=== PATIENT | female | born 1935 | race Caucasian/White ===

== ENCOUNTER → 2016-07-26 | Outpatient (CLI) | payer OTHER, MEDICARE ==
[~2016-07-26] MED LIST: ADVIL PM PO; CALCTAB7 PO; METO25TA3 PO; SIMV20TA2 PO; metoprolol
[2016-07-26 14:00] LABS: BASO % 0.4 %; BASO ABS # 0.03 K/uL (0-0.2); COMPLETE YES; EOS % 2.5 %; HEMATOCRIT 41.2 % (37-47); IG% 0.1 %; LYMPH % 39.7 %; LYMPH ABS # 3.05 K/uL (1.2-3.4); MEAN CELL VOLUME 91.8 fL (80-100); MEAN CORPUSCULAR HGB CONC 33.7 g/dl (32-36); MEAN PLATELET VOLUME 9.4 fL (7.4-10.4); MONO % 8.7 %; NEUT % 48.6 %; PLATELET COUNT 194 K/uL (130-400); RED BLOOD COUNT 4.49 M/uL (4.2-5.4); WHITE BLOOD COUNT 7.68 K/uL (4.8-10.8)
[2016-07-26 14:09] LABS: ALT/SGPT 29 U/L (12-78); AST/SGOT 20 U/L (15-37); BLOOD UREA NITROGEN 20 mg/dl (7-18); BUN/CREATININE RATIO 16.3 (10-20); CALCIUM 9.4 mg/dl (8.5-10.1); CARBON DIOXIDE 28 mmol/L (21-32); CHLORIDE 106 mmol/L (98-107); CHOLESTEROL 179 mg/dl (0-200); GLUCOSE 88 mg/dl (70-99); SODIUM 141 mmol/L (136-145); TRIGLYCERIDES 266 mg/dl (0-150); VERY LOW DENSITY LIPOPROT CALC 53 mg/dl
[2016-07-26 14:12] LABS: ALKALINE PHOSPHATASE 53 U/L (45-117); CHOLESTEROL/HDL RATIO 3.7; HDL CHOLESTEROL 49 mg/dl
== END | disposition home or self-care (01) ==
LOC: C.LABSPEC 12:46
PROVIDERS: ATTEND Internal Medicine
DX: I10 Essential (primary) hypertension (principal); E78.5 Hyperlipidemia, unspecified; M19.90 Unspecified osteoarthritis, unspecified site; E55.9 Vitamin D deficiency, unspecified

== ENCOUNTER → 2016-08-20 | Outpatient (CLI) | payer OTHER, MEDICARE | END | disposition home or self-care (01) | LOC: C.LABSPEC 14:24 | PROVIDERS: ATTEND Internal Medicine | DX: Z01.419 Encounter for gynecological examination (general) (routine) without abnormal findings (principal) ==

== ENCOUNTER → 2016-10-21 | Outpatient (CLI) | payer OTHER, MEDICARE ==
--- NOTE | 2016-10-21 16:00 | MAMMOGRAPHY REPORT ---
BILATERAL DIGITAL SCREENING MAMMOGRAM WITH CAD: 10/21/2016 CLINICAL HISTORY: Routine screening. Patient has no complaints. TECHNIQUE: Bilateral CC, MLO and right XCCL views were obtained. Current study was also evaluated wi th a Computer Aided Detection (CAD) system. COMPARISON: Comparison is made to exams dated: 10/10/2015 mammogram, 10/06/2014 mammogram, 10/05/2013 m ammogram, 10/02/2012 mammogram, 10/02/2011 mammogram, and 09/27/2010 mammogram - [facility] er. BREAST COMPOSITION: There are scattered areas of fibroglandular density in both breasts. FINDINGS: There is stable asymmetry in the inferior right breast. A few benign-appearing calcificati ons bilaterally. No suspicious mass, architectural distortion or cluster of suspicious microcalcifica tions is seen. IMPRESSION: ACR BI-RADS CATEGORY 1: NEGATIVE There is no mammographic evidence of malignancy. A 1 year screening mammogram is recommended. The pa tient will receive written notification of the results. Approximately 10% of breast cancers are not detected with mammography. A negative mammographic report should not delay biopsy if a clinically suggestive mass is present. Ofelia Pickard M.D. ay/:10/21/2016 14:46:27 Ecommerce Merchandising Manager: Cris ESCAMILLA(Marisol)(Ladi)(BD), [facility] letter sent: Normal 1/2 BI-RADS Code: ACR BI-RADS Category 1: Negative
== END | disposition home or self-care (01) ==
LOC: C.MAMM 14:18
PROVIDERS: ATTEND Internal Medicine
DX: Z12.31 Encounter for screening mammogram for malignant neoplasm of breast (principal)

== ENCOUNTER 2016-11-05 13:45 | Emergency (ER) | payer OTHER, MEDICARE ==
[~2016-11-05] VITALS: Ht 162.6 cm; Wt 67.0 kg
[~2016-11-05 13:45] MED LIST changes: -METO25TA3 PO
[2016-11-05 13:47] VITALS: Ht 162.6 cm; Wt 67.0 kg
[2016-11-05] MEDS ORDERED: SODIUM CHLORIDE 0.9% 1000ML 1,000 ML IV STA (13:59)
[2016-11-05] MEDS ORDERED: KETOROLAC TROMETHAMINE 30 MG/ML VIAL IV STA (13:59)
[2016-11-05] MEDS ORDERED: METO25TA3 PO (14:10)
[2016-11-05 15:05] LABS: BASO % 0.4 %; BASO ABS # 0.03 K/uL (0-0.2); COMPLETE YES; EOS % 2.2 %; HEMATOCRIT 41.6 % (37-47); IG% 0.1 %; LYMPH % 49.4 %; LYMPH ABS # 3.54 K/uL (1.2-3.4); MEAN CELL VOLUME 89.3 fL (80-100); MEAN CORPUSCULAR HEMOGLOBIN 29.8 pg (25-34); MEAN CORPUSCULAR HGB CONC 33.4 g/dl (32-36); MEAN PLATELET VOLUME 8.8 fL (7.4-10.4); MONO % 7.8 %; NEUT % 40.1 %; PLATELET COUNT 194 K/uL (130-400); RED BLOOD COUNT 4.66 M/uL (4.2-5.4); WHITE BLOOD COUNT 7.16 K/uL (4.8-10.8)
--- NOTE | 2016-11-05 15:10 | DIAGNOSTIC IMAGING REPORT ---
SINGLE VIEW CHEST CLINICAL HISTORY: Atypical chest pain. FINDINGS: A PA chest radiograph is compared to study dated 06/03/2012. The heart is mildly enlarged and there is atherosclerotic calcification of the thoracic aorta. The pulmonary vasculature is noncongested. Chronic interstitial thickening is similar to previous. There is mild left basilar atelectasis. The lungs and pleural spaces are otherwise clear. No pneumothorax is seen. The skeletal structures are osteopenic. The bony thorax is grossly intact. IMPRESSION: Mild cardiomegaly with no acute cardiopulmonary abnormality. Electronically signed by: Tanner Corral M.D. 11/05/2016 3:08 PM Dictated Date/Time: 11/05/2016 3:07 PM
--- NOTE | 2016-11-05 15:11 | DIAGNOSTIC IMAGING REPORT ---
THORACIC SPINE 3 VIEWS CLINICAL HISTORY: Thoracic back pain. FINDINGS: AP, lateral, and swimmer's views of the thoracic spine are correlated with lateral chest radiograph dated 06/03/2012. The skeletal structures are osteopenic. There is no radiographic evidence of fracture or malalignment involving the thoracic spine. Vertebral body height and alignment are maintained. Tiny anterior osteophytes are seen throughout. The disc spaces appear preserved. The transverse processes and pedicles are grossly intact as seen on the frontal view. The imaged lung parenchyma appears clear. There is atherosclerotic calcification of the thoracic aorta. IMPRESSION: Osteopenia and mild degenerative change as above. No acute bony abnormality is seen in the thoracic spine. Electronically signed by: Tanner Corral M.D. 11/05/2016 3:10 PM Dictated Date/Time: 11/05/2016 3:09 PM
[2016-11-05 15:24] LABS: ALT/SGPT 24 U/L (12-78); BLOOD UREA NITROGEN 19 mg/dl (7-18); BUN/CREATININE RATIO 14.7 (10-20); CALCIUM 9.5 mg/dl (8.5-10.1); CARBON DIOXIDE 28 mmol/L (21-32); CHLORIDE 108 mmol/L (98-107); GLUCOSE 97 mg/dl (70-99); POTASSIUM 3.9 mmol/L (3.5-5.1); SODIUM 143 mmol/L (136-145)
[2016-11-05 15:29] LABS: ALKALINE PHOSPHATASE 53 U/L (45-117); AST/SGOT 21 U/L (15-37); CKMB/CK RATIO 1.6 (0-3.0)
[2016-11-05] MEDS ORDERED: OPTIRAY 320 IV PRN (16:00)
--- NOTE | 2016-11-05 16:14 | DIAGNOSTIC IMAGING REPORT ---
CT ANGIOGRAPHY OF THE CHEST, PULMONARY EMBOLUS PROTOCOL CLINICAL HISTORY: Chest pain. Back pain. COMPARISON STUDY: Chest radiograph June 03, 2012 and November 05, 2016. TECHNIQUE: Following IV administration of 94. mL of Optiray-320, helical axial images of the chest were obtained utilizing the pulmonary embolus protocol. Maximal intensity projections and sagittal and coronal reformats were viewed on an independent 3D workstation. IV contrast was administered without complication. CT DOSE: 210.02 mGy.cm FINDINGS: No pulmonary emboli are identified. There is moderate atherosclerotic plaque of the thoracic liver. There is no thoracic aortic dissection. Size of the heart is normal. There is no pericardial effusion. There is moderate coronary artery calcification. No pneumothorax or pleural effusion is present. There is no consolidation to suggest pneumonia. There are multiple calcified lung nodules. There is a 4 mm noncalcified nodule within the left upper lobe shown on image 208 of 296. Bony thorax and upper abdomen are unremarkable with the exception of a left hepatic lobe cyst. IMPRESSION: 1. No pulmonary emboli identified. 2. No thoracic aortic dissection. Moderate atherosclerotic plaque of the descending thoracic aorta. 3. No acute intrathoracic findings. 4. 4 mm noncalcified left upper lobe nodule. This is likely benign but a follow up chest CT in 6 months is recommended to ensure resolution or stability. Electronically signed by: Erick Hale M.D. 11/05/2016 4:13 PM Dictated Date/Time: 11/05/2016 4:03 PM
[2016-11-05 17:34] VITALS: BP 167/73; PULSE 68; TEMP 36.5; O2SAT 98
--- NOTE | 2016-11-05 18:08 | EMERGENCY ROOM VISIT NOTE ---
History Report prepared by Felipe: Michael Braden Under the Supervision of: Dr. Wilfred Herrera D.O. First contact with patient: 13:49 Chief Complaint: CHEST PAIN Stated Complaint: PAIN IN CHEST AND BACK Nursing Triage Summary: pt to the ED with c/o back pain radiating to the chest starting 45 min ago History of Present Illness The patient is a 81 year old female who presents to the Emergency Room with complaints of persistent back pain radiating to her chest beginning 45 minutes ago. She states that she was watching TV when her symptoms began. Pain is located in her mid thoracic spine over center of her back and goes and muscles. The patient states that she has a history of similar symptoms, but states that it has never lasted for more than 5 minutes so she has not followed up about it. She estimates that she would typically have these brief symptoms every 10 days or so for about 6 months. Standing up and walking improves her pain. Aspirin also improves her pain. Nothing worsens her pain. Pt denies headache, change in vision, fevers, arm pain, neck pain, jaw pain, diaphoresis, shortness of breath, nausea, vomiting, diarrhea, pain with urination, and melena. She denies any known pain with eating, drinking, or straining. She took aspirin for her pain today. She denies any exertional symptoms and notes that she is very active on a day-to-day basis. No previous history of any heart disease. She denies any weakness or numbness in her legs. No numbness in her groin. Able to urinate and move bowels without difficulty. Source of History: patient Onset: 45 minutes ago Position: back (upper back) Timing: other (persistent) Modifying Factors (Worsening): other (nothing) Modifying Factors (Relieving): other (standing up) Associated Symptoms: + chest pain, No neck pain, No SOB, No nausea, No vomiting Note: The patient denies any arm pain. Review of Systems See HPI for pertinent positives & negatives. A total of 10 systems reviewed and were otherwise negative. Past Medical & Surgical Medical Problems: (1) HTN (hypertension) Family History No pertinent family history stated. Social History Smoking Status: Never Smoker Occupation Status: retired Current/Historical Medications Scheduled Calcium Carbonate-Vitamin D W/ (Caltrate 600 Plus), 1 TAB PO DAILY Metoprolol Succ (Toprol Xl) (Toprol-Xl), 25 MG PO DAILY Simvastatin (Zocor), 20 MG PO QPM Allergies Coded Allergies: No Known Allergies (Unverified , 11/05/16) Physical Exam Vital Signs Date Time Temp Pulse Resp B/P (MAP) Pulse Ox O2 Delivery O2 Flow Rate FiO2 11/05/16 17:34 36.5 68 16 167/73 98 11/05/16 16:04 69 16 165/67 97 Room Air 11/05/16 15:20 72 18 153/62 98 Room Air 11/05/16 14:35 74 24 158/71 96 11/05/16 13:57 74 11/05/16 13:47 36.5 79 16 170/80 97 Room Air Physical Exam GENERAL: Sitting up in bed, alert, well appearing, well nourished, no distress, non-toxic EYE EXAM: normal conjunctiva OROPHARYNX: no exudate, no erythema, lips, buccal mucosa, and tongue normal and mucous membranes are moist NECK: supple, no nuchal rigidity, no adenopathy, non-tender LUNGS: Clear to auscultation. Normal chest wall mechanics HEART: no murmurs, S1 normal and S2 normal ABDOMEN: abdomen soft, non-tender, normo-active bowel sounds, no masses, no rebound or guarding. BACK: Back is symmetrical on inspection and there is no deformity, no CVA tenderness. Mild tenderness in the mid-thoracic spine and paraspinal area. SKIN: no rashes and no bruising UPPER EXTREMITIES: upper extremities are grossly normal. Radial pulses equal bilaterally. LOWER EXTREMITIES: No pitting edema. Flexion/extension of hip, knee, ankle, and EHL are 5/5 bilaterally. NEURO EXAM: Normal sensorium, cranial nerves II-XII grossly intact, normal speech, no weakness of arms, no weakness of legs. Medical Decision & Procedures ER Provider Diagnostic Interpretation: Radiology results as stated below per my review and the radiologist's interpretation: THORACIC SPINE 3 VIEWS FINDINGS: AP, lateral, and swimmer's views of the thoracic spine are correlated with lateral chest radiograph dated 06/03/2012. The skeletal structures are osteopenic. There is no radiographic evidence of fracture or malalignment involving the thoracic spine. Vertebral body height and alignment are maintained. Tiny anterior osteophytes are seen throughout. The disc spaces appear preserved. The transverse processes and pedicles are grossly intact as seen on the frontal view. The imaged lung parenchyma appears clear. There is atherosclerotic calcification of the thoracic aorta. IMPRESSION: Osteopenia and mild degenerative change as above. No acute bony abnormality is seen in the thoracic spine. Electronically signed by: Tanner Corral M.D. SINGLE VIEW CHEST FINDINGS: A PA chest radiograph is compared to study dated 06/03/2012. The heart is mildly enlarged and there is atherosclerotic calcification of the thoracic aorta. The pulmonary vasculature is noncongested. Chronic interstitial thickening is similar to previous. There is mild left basilar atelectasis. The lungs and pleural spaces are otherwise clear. No pneumothorax is seen. The skeletal structures are osteopenic. The bony thorax is grossly intact. IMPRESSION: Mild cardiomegaly with no acute cardiopulmonary abnormality. Electronically signed by: Tanner Corral M.D. Laboratory Results 11/05/16 13:55 Red Blood Count 4.66, Mean Corpuscular Volume 89.3, Mean Corpuscular Hemoglobin 29.8, Mean Corpuscular Hemoglobin Concent 33.4, Mean Platelet Volume 8.8, Neutrophils (%) (Auto) 40.1, Lymphocytes (%) (Auto) 49.4, Monocytes (%) (Auto) 7.8, Eosinophils (%) (Auto) 2.2, Basophils (%) (Auto) 0.4, Neutrophils # (Auto) 2.86, Lymphocytes # (Auto) 3.54, Monocytes # (Auto) 0.56, Eosinophils # (Auto) 0.16, Basophils # (Auto) 0.03 11/05/16 13:55 Test 11/05/16 13:55 11/05/16 16:23 White Blood Count 7.16 K/uL (4.8-10.8) Red Blood Count 4.66 M/uL (4.2-5.4) Hemoglobin 13.9 g/dL (12.0-16.0) Hematocrit 41.6 % (37-47) Mean Corpuscular Volume 89.3 fL (80-100) Mean Corpuscular Hemoglobin 29.8 pg (25-34) Mean Corpuscular Hemoglobin Concent 33.4 g/dl (32-36) Platelet Count 194 K/uL (130-400) Mean Platelet Volume 8.8 fL (7.4-10.4) Neutrophils (%) (Auto) 40.1 % Lymphocytes (%) (Auto) 49.4 % Monocytes (%) (Auto) 7.8 % Eosinophils (%) (Auto) 2.2 % Basophils (%) (Auto) 0.4 % Neutrophils # (Auto) 2.86 K/uL (1.4-6.5) Lymphocytes # (Auto) 3.54 K/uL (1.2-3.4) Monocytes # (Auto) 0.56 K/uL (0.11-0.59) Eosinophils # (Auto) 0.16 K/uL (0-0.5) Basophils # (Auto) 0.03 K/uL (0-0.2) RDW Standard Deviation 42.3 fL (36.4-46.3) RDW Coefficient of Variation 13.1 % (11.5-14.5) Immature Granulocyte % (Auto) 0.1 % Immature Granulocyte # (Auto) 0.01 K/uL (0.00-0.02) D-Dimer 840 ug/L FEU (0-500) Anion Gap 7.0 mmol/L (3-11) Est Creatinine Clear Calc Drug Dose 33.0 ml/min Estimated GFR () 45.2 Estimated GFR (Non- 39.0 BUN/Creatinine Ratio 14.7 (10-20) Calcium Level 9.5 mg/dl (8.5-10.1) Total Bilirubin 0.8 mg/dl (0.2-1) Direct Bilirubin 0.1 mg/dl (0-0.2) Aspartate Amino Transf (AST/SGOT) 21 U/L (15-37) Alanine Aminotransferase (ALT/SGPT) 24 U/L (12-78) Alkaline Phosphatase 53 U/L (45-117) Total Creatine Kinase 86 U/L (26-192) Creatine Kinase MB 1.4 ng/ml (0.5-3.6) Creatine Kinase MB Ratio 1.6 (0-3.0) Total Protein 7.5 gm/dl (6.4-8.2) Albumin 3.9 gm/dl (3.4-5.0) Lipase 289 U/L (73-393) Troponin I < 0.015 ng/ml (0-0.045) Laboratory results per my review. Medications Administered Medications (Trade) Dose Ordered Sig/Larry Route Start Time Stop Time Status Last Admin Dose Admin Ketorolac Tromethamine (Toradol Inj) 30 mg NOW STAT IV 11/05/16 13:59 11/05/16 14:01 DC 11/05/16 14:30 30 MG Sodium Chloride 1,000 ml @ 999 mls/hr Q1H1M STAT IV 11/05/16 13:59 11/05/16 14:59 DC 11/05/16 13:59 999 MLS/HR ECG Indication: chest pain, back/shoulder pain Rate (beats per minute): 74 Rhythm: sinus rhythm Findings: no ectopy, other (Normal axis. Normal intervals. ) ED Course ED COURSE: Vital signs were reviewed and showed hypertension The patients medical record was reviewed The above diagnostic studies were performed and reviewed. ED treatments and interventions as stated above. 1352: The patient was evaluated in room A12B. A complete history and physical examination was performed. 1359: Ordered Sodium Chloride 1000 ml @ 999 mls/hr IV, Toradol Inj 30 mg IV. 1513: I reassessed the patient. She is feeling better. She states that her pain feels like a "kink" in her back. 1620: I updated the patient on her test results. We will repeat her Troponin now. 1715: Upon reevaluation, the patient is resting comfortably. I discussed my findings with the patient and she understands and agrees with the treatment plan. Based on the patients age, coexisting illnesses, exam and lab findings the decision to treat as an outpatient was made. The patient remained stable while under my care. The patient appeared well at the time of discharge. Medical Decision Differential diagnoses includes but is not limited to lumbar radiculopathy, muscle strain, facture, cauda equina, mass, and disc herniation. Patient is a 81-year-old female with a past medical history of hypertension that presents the ER for sharp stabbing back pain located along her spine which radiates up towards her chest. She denies any shortness of breath, arm pain, jaw pain, diaphoresis. She notes symptoms are improved with standing up and walking. She has had this pain for the past 6 months and is normally present for about 5-10 minutes while sitting. On exam she is minimal tenderness in the midthoracic spine. Troponins were negative 2. Chest x-ray was unremarkable. D-dimer was elevated and CT PE was performed which shows no dissection or PE. No pneumothorax. Patient was given IV Toradol with resolution of her symptoms. She is monitored closely along the ER. EKG was nonischemic. CBC along with BMP, LFTs and bilirubin was unremarkable. Lipase is normal. She was updated regards to findings. She was discharged follow-up with her PCP with likely muscle skeletal back pain. Discussed with Pt concerning signs and symptoms to watch out for. Pt was instructed to follow up with their PCP and discussed with the patient their option to return to the ED at anytime for persistent or worsening symptoms. The appropriate anticipatory guidance and out-patient management, including indications for return to the emergency department, were explained at length to the patient and understood. Impression Primary Impression: Midline thoracic back pain Additional Impression: Pulmonary nodule Scribe Attestation The scribe's documentation has been prepared under my direction and personally reviewed by me in its entirety. I confirm that the note above accurately reflects all work, treatment, procedures, and medical decision making performed by me. Departure Information Dispostion Home / Self-Care Referrals Krishna Puente M.D. (PCP) Forms HOME CARE DOCUMENTATION FORM, IMPORTANT VISIT INFORMATION Patient Instructions Back Pain - [facility], Replaced By [facility] Additional Instructions Please follow up with your primary care doctor with in the next 24 hours. Any worsening of your symptoms, please return to the ED immediately. This includes recurrence of her back pain, weakness or numbness in your arms or legs, chest pain, shortness of breath, arm pain, jaw pain, or any other concerning signs or symptoms from your standpoint. Please take Motrin or Tylenol as needed for pain. You were found to have a 4 mm pulmonary lung nodule in her left chest. This needs to be re-evaluated by a CAT scan in 6 months by your primary care doctor. Problem Qualifiers Primary Impression: Midline thoracic back pain Chronicity: acute Qualified Codes: M54.6 - Pain in thoracic spine
== END 2016-11-05 17:25 | disposition home or self-care (01) ==
LOC: C.EDB 13:46 → C.EDA 17:25
DX: M54.6 Pain in thoracic spine (principal); R91.1 Solitary pulmonary nodule; I10 Essential (primary) hypertension

== ENCOUNTER → 2017-01-28 | Outpatient (CLI) | payer OTHER, MEDICARE ==
[~2017-01-28] MED LIST changes: -ADVIL PM PO; +METO25TA3 PO; -metoprolol
[2017-01-28 13:40] LABS: BLOOD UREA NITROGEN 17 mg/dl (7-18); BUN/CREATININE RATIO 14.4 (10-20); CALCIUM 9.5 mg/dl (8.5-10.1); CARBON DIOXIDE 24 mmol/L (21-32); CHLORIDE 109 mmol/L (98-107); GLUCOSE 95 mg/dl (70-99); POTASSIUM 4.4 mmol/L (3.5-5.1); SODIUM 142 mmol/L (136-145)
[2017-01-28 13:52] LABS: CHOLESTEROL 153 mg/dl (0-200); HDL CHOLESTEROL 51 mg/dl; TRIGLYCERIDES 180 mg/dl (0-150); VERY LOW DENSITY LIPOPROT CALC 36 mg/dl
== END | disposition home or self-care (01) ==
LOC: C.LABSPEC 12:29
PROVIDERS: ATTEND Internal Medicine
DX: I10 Essential (primary) hypertension (principal); E78.5 Hyperlipidemia, unspecified

== ENCOUNTER → 2017-05-28 | Outpatient (CLI) | payer OTHER, MEDICARE ==
[2017-05-28 13:39] LABS: BLOOD UREA NITROGEN 19 mg/dl (7-18); CALCIUM 9.4 mg/dl (8.5-10.1); CARBON DIOXIDE 29 mmol/L (21-32); CREATININE 1.16 mg/dl (0.60-1.20); GLUCOSE 99 mg/dl (70-99); POTASSIUM 3.9 mmol/L (3.5-5.1); SODIUM 140 mmol/L (136-145)
== END | disposition home or self-care (01) ==
LOC: C.LABSPEC 12:25
PROVIDERS: ATTEND Internal Medicine
DX: Z01.818 Encounter for other preprocedural examination (principal); Z01.812 Encounter for preprocedural laboratory examination

== ENCOUNTER → 2017-05-30 | Outpatient (CLI) | payer OTHER, MEDICARE ==
[~2017-05-30] MED LIST changes: +OPTIRAY 320 IV PRN
--- NOTE | 2017-05-30 12:26 | DIAGNOSTIC IMAGING REPORT ---
CT SCAN OF THE CHEST WITH IV CONTRAST CLINICAL HISTORY: Follow-up pulmonary nodule. COMPARISON STUDY: Chest CT dated 11/05/2016. TECHNIQUE: Following the IV administration of 94 cc of Optiray 320, CT scan of the thorax was performed from the thoracic inlet to the upper abdomen. Images are reviewed in the axial, sagittal, and coronal planes. IV contrast was administered without complication. A dose lowering technique was utilized adhering to the principles of ALARA. CT DOSE: 240.05 mGycm FINDINGS: Thyroid: Imaged portions of the thyroid gland are normal in size and attenuation. Subcentimeter low-attenuation nodules are noted. Thoracic aorta: There is mild atherosclerotic calcification of the thoracic aorta, which is normal in caliber and demonstrates standard 3-vessel arch anatomy. No dissection is seen. Pulmonary vasculature: The pulmonary trunk is normal in caliber. There are no filling defects identified in the central pulmonary vessels to indicate pulmonary embolus. Note that this examination was not protocoled for evaluation of the pulmonary arteries. Heart: The heart is top normal in size and without pericardial effusion. There are coronary artery calcifications. 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 No airspace consolidation or pleural effusion is identified. The trachea and central airways are clear. A tiny calcified granuloma is seen in the right upper lobe. A 3 mm left upper lobe nodule is again seen on image #85. No new pulmonary nodule is identified. Mediastinum: There is no mediastinal lymphadenopathy. Cierra: Clear. Axillae: There is no axillary lymphadenopathy. Upper abdomen: Partially visualized upper abdominal viscera is within normal limits. Skeletal structures: The skeletal structures are osteopenic. No lytic or blastic bony lesions are seen. IMPRESSION: 1. There is no airspace consolidation or pleural effusion. 2. A pathologically indeterminant but low suspicion 3 mm left upper lobe pulmonary nodule is unchanged to slightly decreased in size from 11/05/2016. This can be followed if clinically warranted. 3. No new pulmonary nodule is identified. Please refer to below summary of Fleischner criteria recommendations for follow-up of incidental CT nodules (Margarita Harris, Guidelines for management of small pulmonary nodules detected on CT scans: A statement from the Fleischner Society, Radiology 237: [phone].) SOLID NODULES Solitary nodule size: <6 mm * low risk patients: no follow-up needed * high risk patients: optional CT at 12 months Solitary nodule size: 6-8 mm * low risk patients: follow-up at 6-12 months, then consider further follow-up at 18-24 months * high risk patients: initial follow-up CT at 6-12 months and then at 18-24 months if no change Solitary nodule size: >8 mm * either low or high risk patients - consider follow-up CT at 3 months, and/or CT-PET, and/or biopsy Multiple nodules size: <6 mm * low risk patients: no routine follow-up * high risk patients: optional CT at 12 months Multiple nodules size: 6-8 mm * low risk patients: follow-up at 3-6 months, then consider further follow-up at 18-24 months * high risk patients: follow-up at 3-6 months, then at 18-24 months if no change Multiple nodules size: >8 mm * low risk patients: follow-up at 3-6 months, then consider further follow-up at 18-24 months * high risk patients: follow-up at 3-6 months, then at 18-24 months if no change Note: newly detected indeterminate nodule in persons 35 years of age or older. * low risk patients: minimal or absent history of smoking and/or other known risk factors * high risk patients: history of smoking or of other known risk factors (e.g. first degree relative with lung cancer, or exposure to asbestos, radon, uranium) * if a nodule up to 8 mm is partly solid or is ground glass further follow-up is required after 24 months to exclude possible slow growing adenocarcinoma (TAYLOR) SUBSOLID NODULES Solitary pure ground-glass nodule * nodule size <6 mm - no CT follow-up required * nodule size >=6 mm - follow-up CT at 6-12 months, then every 2 years until 5 years Solitary part-solid nodule * nodule size <6 mm - no CT follow-up required * nodule size >=6 mm - follow-up CT at 3-6 months. If unchanged, and solid component remains <6 mm, then annual follow-up for 5 years Multiple subsolid nodules * nodule size <6 mm - follow-up CT at 3-6 months, consider further follow-up at 2 and 4 years if stable * nodule size >=6 mm - follow-up CT at 3-6 months, subsequent management based on the most suspicious nodule(s) Electronically signed by: Tanner Corral M.D. 05/30/2017 12:24 PM Dictated Date/Time: 05/30/2017 12:16 PM
== END | disposition home or self-care (01) ==
LOC: C.CTS 11:41
PROVIDERS: ATTEND Internal Medicine
DX: R91.1 Solitary pulmonary nodule (principal)

== ENCOUNTER → 2017-07-31 | Outpatient (CLI) | payer OTHER, MEDICARE ==
[~2017-07-31] MED LIST changes: -OPTIRAY 320 IV PRN
[2017-07-31 13:58] LABS: BASO % 0.5 %; BASO ABS # 0.04 K/uL (0-0.2); EOS % 3.1 %; EOS ABS # 0.23 K/uL (0-0.5); HEMATOCRIT 38.4 % (37-47); HEMOGLOBIN 13.3 g/dL (12.0-16.0); IG# 0.01 K/uL (0.00-0.02); LYMPH % 44.7 %; MEAN CELL VOLUME 90.4 fL (80-100); MEAN CORPUSCULAR HEMOGLOBIN 31.3 pg (25-34); MEAN CORPUSCULAR HGB CONC 34.6 g/dl (32-36); MONO % 10.7 %; MONO ABS # 0.79 K/uL (0.11-0.59); NEUT % 40.9 %; NEUT ABS # 3.02 K/uL (1.4-6.5); PLATELET COUNT 174 K/uL (130-400); RED CELL DISTRIBUTION WIDTH CV 13.6 % (11.5-14.5); WHITE BLOOD COUNT 7.39 K/uL (4.8-10.8)
[2017-07-31 14:43] LABS: ALBUMIN 3.6 gm/dl (3.4-5.0); ALT/SGPT 25 U/L (12-78); AST/SGOT 21 U/L (15-37); BLOOD UREA NITROGEN 19 mg/dl (7-18); CALCIUM 8.9 mg/dl (8.5-10.1); CARBON DIOXIDE 26 mmol/L (21-32); CHOLESTEROL 155 mg/dl (0-200); CREATININE 1.12 mg/dl (0.60-1.20); GLUCOSE 84 mg/dl (70-99); POTASSIUM 4.2 mmol/L (3.5-5.1); SODIUM 139 mmol/L (136-145)
[2017-07-31 14:46] LABS: ALKALINE PHOSPHATASE 53 U/L (45-117); LDL CHOLESTEROL (DIRECT) 86 mg/dl; TOTAL PROTEIN 7.2 gm/dl (6.4-8.2)
== END | disposition home or self-care (01) ==
LOC: C.LABSPEC 12:49
PROVIDERS: ATTEND Internal Medicine
DX: M19.90 Unspecified osteoarthritis, unspecified site (principal); I10 Essential (primary) hypertension; E78.5 Hyperlipidemia, unspecified; E55.9 Vitamin D deficiency, unspecified

== ENCOUNTER → 2017-08-02 | Outpatient (CLI) | payer OTHER, MEDICARE ==
[2017-08-13 18:59] LABS: FECAL OCCULT BLOOD #1 NEGATIVE (NEGATIVE); FECAL OCCULT BLOOD #2 NEGATIVE (NEGATIVE); FECAL OCCULT BLOOD #3 NEGATIVE (NEGATIVE)
== END | disposition home or self-care (01) ==
LOC: C.LABSPEC 16:31
PROVIDERS: ATTEND Internal Medicine
DX: Z12.11 Encounter for screening for malignant neoplasm of colon (principal)

== ENCOUNTER → 2017-08-13 | Outpatient (CLI) | payer OTHER, MEDICARE ==
--- NOTE | 2017-08-13 10:56 | DIAGNOSTIC IMAGING REPORT ---
R KNEE 1 OR 2 VIEWS ROUTINE HISTORY: 82 years-old Female RIGHT KNEE PAIN chronic right knee pain COMPARISON: Right knee radiographs 10/18/2015 TECHNIQUE: 3 views of the right knee FINDINGS: Mild tricompartmental joint space narrowing with marginal spurring. Chondrocalcinosis is noted within the medial and lateral compartments. There is no acute fracture or dislocation identified. Suboptimal positioning on the lateral view. Trace joint effusion. IMPRESSION: 1. Trace joint effusion without acute fracture or dislocation. 2. Mild tricompartment degenerative changes with chondrocalcinosis. The above report was generated using voice recognition software. It may contain grammatical, syntax or spelling errors. Electronically signed by: Jose Angel Gagnon M.D. 08/13/2017 10:55 AM Dictated Date/Time: 08/13/2017 10:51 AM
== END | disposition home or self-care (01) ==
LOC: C.RAD 10:23
PROVIDERS: ATTEND Internal Medicine
DX: M25.561 Pain in right knee (principal)

== ENCOUNTER 2022-06-05 10:44 | Inpatient (IN) ==
[2022-06-05] MEDS ORDERED: SODIUM CHLORIDE 0.9% 1000ML 1,000 ML IV ONE (11:03)
--- NOTE | 2022-06-05 11:07 | Emergency Department Note ---
Impression & Plan Acute UTI, AMS (altered mental status), CINDY (acute kidney injury) ED Provider Note NAME: MALIK CRUZ AGE: 87 SEX: F : 1935 ARRIVES VIA: Walk-In INFORMANT: Patient ED PROVIDER(S): Wilfred Herrera DO CHIEF COMPLAINT: abdominal pain HPI: Patient is an 87-year-old female who presents to the ER for dysuria, urgency, and frequency which has been going on for the past week. She notes she has not been feeling well. Over the past 2 to 3 days she has been having nausea, vomiting, and diarrhea. She went to [facility] had a urine done and was diagnosed with a UTI and placed on Bactrim. She notes last night she fell out of bed. She did not hit her head. She fell onto her butt. She denies any head or neck pain. No chest pain or shortness of breath. She notes that she fell and she was unable to get up. She has not been feeling better on the Bactrim. She is having trouble keeping things down. PAST MEDICAL HISTORY:See Below PAST SURGICAL HISTORY:See Below FAMILY HISTORY:See Below SOCIAL HISTORY:See Below HOME MEDICATIONS:See Below ALLERGIES:See Below VITALS:See Below PHYSICAL EXAMINATION: GENERAL: Sitting up in bed, alert, well appearing, well nourished, no distress, non-toxic EYE EXAM: normal conjunctiva. OROPHARYNX: no exudate, no erythema, lips, buccal mucosa, and tongue normal and mucous membranes are moist NECK: supple, no nuchal rigidity, no adenopathy, non-tender LUNGS: Clear to auscultation. Normal chest wall mechanics HEART: no murmurs, S1 normal and S2 normal ABDOMEN: abdomen soft, non-tender, normo-active bowel sounds, no masses, no rebound or guarding. BACK: Back is symmetrical on inspection and there is no deformity, no midline tenderness, no CVA tenderness. UPPER EXTREMITIES: upper extremities are grossly normal. LOWER EXTREMITIES: No pitting edema. NEURO EXAM: Normal sensorium, cranial nerves II-XII grossly intact, normal speech, no gross weakness of arms, no gross weakness of legs. MEDICAL DECISION MAKING: Patient is an 87-year-old female who presents to the ER for the above-stated complaint. IV was established blood was obtained. She was seen in outpatient and placed on Bactrim. Labs show a leukocytosis of 13,000. No significant anemia. BMP with creatinine of 1.9 up from baseline of 1.2. Lipase is u nremarkable. UA with blood and epithelial cells. Outside records were reviewed and did not show a clear UTI but did cover with Rocephin. Chest x-ray per my read shows no focal infiltrate. CT abdomen pelvis as well as CT of the head was negative with exception of some perinephric stranding bilaterally. Concern for Pylo. Was given IV Rocephin as discussed previously and fluids. Updated at bed side. Discussed with the hospitalist for further evaluation with the altered mental status/confusion and shaking chills at home with a white count and questionable Pylo. Triage Nursing notes reviewed. Limited review of prior medical records performed Vital Signs: reviewed and remarkable for no significant abnormalities Differential diagnosis: Differential diagnoses includes but is not limited to gastritis, peptic ulcer disease, GERD, gallbladder disease, pancreatitis, small bowel obstruction, appendicitis, diverticulitis, hernia, urinary tract infection, torsion, perforation, trauma, infectious. ER treatment provided: See below Diagnostics interpreted by me include EKG and cardiac monitoring as listed below: -Cardiac Monitoring: An order was placed for continuous cardiac monitoring. The monitor shows a rate of 70 with sinus rhythm. -ECG: none -Laboratory studies:Interpreted by me as stated above in MDM and shown below. Imaging studies: Xrays: As interpreted by me: Portable AP upright 1 view of the chest shows 1 no focal infiltrate CTs show: CT abdomen pelvis and head as described above with inflammation around bilateral kidneys but otherwise unremarkable Consultation(s): Discussed with the hospitalist for further evaluation Procedures:none Critical Care: None Past Med/Surg History Medical History Anxiety Chronic venous insufficiency CKD (chronic kidney disease) stage 3, GFR 30-59 ml/min History of DVT (deep vein thrombosis) HTN (hypertension) Lumbar radicular pain Lumbar spondylosis Mixed hyperlipidemia No pertinent past medical history Osteoarthritis of left hip Osteoarthritis of right knee Prediabetes Rotator cuff tendonitis Sacroiliac joint pain Spinal stenosis of lumbar region Surgical History History of hysterectomy Hx of cataract surgery No pertinent past surgical history Family History Sister Breast cancer Denies family history of Ovarian cancer Prostate cancer Lung cancer Colorectal cancer Social History Smoking Status: Never smoker Second Hand Exposure: Yes; Hx Alcohol Use: No Hx Substance Use: No Preferred Language: Martiniquais marital status: / Current Living Situation: Alone current occupational status: retired Feels Safe at Home: Yes caffeine: No Dental Care, Regularly: Yes Seatbelt Use: always Sunscreen Use: Yes Allergies Allergies Allergy/AdvReac Type Severity Reaction Status Date / Time No Known Allergies Allergy Verified 06/05/22 15:10 Home Meds Home Medications Medication Instructions Recorded Confirmed docusate sodium 100 mg capsule 100 mg PO BID 12/11/21 06/05/22 (Colace) multivitamin with minerals 1 tab PO DAILY 06/05/22 06/05/22 sulfamethoxazole 800 1 tab PO BID 06/05/22 06/05/22 mg-trimethoprim 160 mg tablet Previous Rx's Medication Instructions Recorded simvastatin 20 mg tablet (Zocor) 20 mg PO DAILY #90 tabs 12/19/21 metoprolol tartrate 50 mg tablet 50 mg PO DAILY #90 tabs 01/02/22 amlodipine 5 mg tablet 5 mg PO DAILY #90 tabs 03/20/22 Results & Data (ED) Vital Signs Vital Signs - 24 hr 06/05/22 10:44 06/05/22 11:58 Temperature 36.6 C Temperature Source Temporal Artery Scan Pulse Rate 69 63 Pulse Rhythm Regular Respiratory Rate 18 21 Respiratory Effort / Characteristics Non-Labored Spontaneous Respiratory Depth Normal Respiratory Pattern Regular Blood Pressure 117/71 Blood Pressure Mean 86 Pulse Oximetry 96 98 Oxygen Delivery Method Room Air Room Air Sepsis Recent Fever Within 48 Hours Yes Sepsis New/Unexplained Change in Mental Status No Sepsis Action Taken by Nursing No Action Required Laboratory Data 06/05/22 11:25 06/05/22 11:25 Lab Results 06/05/22 06/05/22 06/05/22 Range/Units 11:25 11:25 14:25 WBC 13.00 H (4.8-10.8) K/ul RBC 3.91 L (4.20-5.40) M/uL Hgb 11.7 L (12.0-16.0) g/dl Hct 34.2 L (37.0-47.0) % MCV 87.5 (80.0-100.0) fL MCH 29.9 (25.0-34.0) pg MCHC 34.2 (32.0-36.0) g/dL RDW Std Deviation 40.8 (36.4-46.3) fL RDW Coeff of Franky 12.9 (11.5-14.5) % Plt Count 183 (130-400) K/uL MPV 9.0 L (9.4-12.4) fL Immature Gran % (Auto) 0.4 % Neut % (Auto) 73.3 % Lymph % (Auto) 15.9 % Camden % (Auto) 10.0 % Eos % (Auto) 0.2 % Baso % (Auto) 0.2 % Neut # (Auto) 9.53 H (1.40-6.50) K/uL Lymph # (Auto) 2.07 (1.2-3.4) K/uL Camden # (Auto) 1.30 H (0.11-0.59) K/uL Eos # (Auto) 0.03 (0-0.50) K/uL Baso # (Auto) 0.02 (0-0.2) K/uL Immature Gran # (Auto) 0.05 (0.01-0.20) K/uL Sodium 132 L (136-145) mmol/L Potassium 4.0 (3.5-5.1) mmol/L Chloride 98 (98-107) mmol/L Carbon Dioxide 26 (21-32) mmol/L Anion Gap 8 (3-11) BUN 32 H (6-23) mg/dl Creatinine 1.97 H (0.6-1.2) mg/dl Est Cr Clr Drug Dosing 18.0 ml/min Est GFR ( Amer) 26.2 ml/min Est GFR (Non-Af Amer) 22.6 ml/min BUN/Creatinine Ratio 16.2 (10-20) Glucose 104 H (70-99(Fasting)) mg/dl Calcium 8.9 (8.5-10.1) mg/dl Total Bilirubin 0.8 (0.2-1.0) mg/dl AST 20 (13-39) U/L ALT 13 (7-52) U/L Alkaline Phosphatase 54 (34-104) U/L Total Creatine Kinase 505 H (26-192) U/L Total Protein 7.9 (6.0-8.3) gm/dl Albumin 3.7 (3.4-5.0) gm/dl Globulin 4.2 H (2.5-4.0) gm/dl Albumin/Globulin Ratio 0.9 (0.9-2) Lipase 31 (11-82) U/L Urine Color Urine Appearance (Clear) Urine pH (4.5-7.5) Ur Specific Hamlin (1.000-1.030) Urine Protein (Negative) Urine Glucose (UA) (Negative) Urine Ketones (Negative) Urine Blood (Negative) Urine Nitrite (Negative) Urine Bilirubin (Negative) Urine Urobilinogen (Negative) Ur Leukocyte Esterase (Negative) Urine WBC (Auto) (0-5) /hpf Urine RBC (Auto) (0-4) /hpf U Hyaline Cast (Auto) (0-5) /lpf U Epithel Cells (Auto) (0-5) /lpf Urine Bacteria (Auto) (Negative) SARS-CoV-2 (PCR) NEGATIVE (Negative) Influenza Type A (PCR) Negative (Neg) Influenza Type B (PCR) Negative (Neg) RSV (RT-PCR) Negative (Neg) 06/05/22 Range/Units Unknown WBC (4.8-10.8) K/ul RBC (4.20-5.40) M/uL Hgb (12.0-16.0) g/dl Hct (37.0-47.0) % MCV (80.0-100.0) fL MCH (25.0-34.0) pg MCHC (32.0-36.0) g/dL RDW Std Deviation (36.4-46.3) fL RDW Coeff of Franky (11.5-14.5) % Plt Count (130-400) K/uL MPV (9.4-12.4) fL Immature Gran % (Auto) % Neut % (Auto) % Lymph % (Auto) % Cam[place] % (Auto) % Eos % (Auto) % Baso % (Auto) % Neut # (Auto) (1.40-6.50) K/uL Lymph # (Auto) (1.2-3.4) K/uL [place] # (Auto) (0.11-0.59) K/uL Eos # (Auto) (0-0.50) K/uL Baso # (Auto) (0-0.2) K/uL Immature Gran # (Auto) (0.01-0.20) K/uL Sodium (136-145) mmol/L Potassium (3.5-5.1) mmol/L Chloride (98-107) mmol/L Carbon Dioxide (21-32) mmol/L Anion Gap (3-11) BUN (6-23) mg/dl Creatinine (0.6-1.2) mg/dl Est Cr Clr Drug Dosing ml/min Est GFR ( Amer) ml/min Est GFR (Non-Af Amer) ml/min BUN/Creatinine Ratio (10-20) Glucose (70-99(Fasting)) mg/dl Calcium (8.5-10.1) mg/dl Total Bilirubin (0.2-1.0) mg/dl AST (13-39) U/L ALT (7-52) U/L Alkaline Phosphatase (34-104) U/L Total Creatine Kinase (26-192) U/L Total Protein (6.0-8.3) gm/dl Albumin (3.4-5.0) gm/dl Globulin (2.5-4.0) gm/dl Albumin/Globulin Ratio (0.9-2) Lipase (11-82) U/L Urine Color Yellow Urine Appearance Clear (Clear) Urine pH 7.0 (4.5-7.5) Ur Specific Hamlin 1.004 (1.000-1.030) Urine Protein Negative (Negative) Urine Glucose (UA) Negative (Negative) Urine Ketones Negative (Negative) Urine Blood Trace H (Negative) Urine Nitrite Negative (Negative) Urine Bilirubin Negative (Negative) Urine Urobilinogen Negative (Negative) Ur Leukocyte Esterase Negative (Negative) Urine WBC (Auto) 1-5 (0-5) /hpf Urine RBC (Auto) 0-4 (0-4) /hpf U Hyaline Cast (Auto) 0 (0-5) /lpf U Epithel Cells (Auto) 5-10 H (0-5) /lpf Urine Bacteria (Auto) Negative (Negative) SARS-CoV-2 (PCR) (Negative) Influenza Type A (PCR) (Neg) Influenza Type B (PCR) (Neg) RSV (RT-PCR) (Neg) Administered Medications Discontinued Medications Sodium Chloride (Nss 1000ml) 1,000 mls @ 999 mls/hr IV .Q1H1M ONE Stop: 06/05/22 12:03 Last Infusion: 06/05/22 13:37 Dose: 0 mls/hr Documented By: Admin: 06/05/22 11:35 Dose: 999 mls/hr Documented By: SU Ceftriaxone Sodium (Rocephin) 2,000 mg in 70 mls @ 140 mls/hr IV NOW STA Stop: 06/05/22 14:40 Last Infusion: 06/05/22 15:04 Dose: 0 mls/hr Documented By: Admin: 06/05/22 14:22 Dose: 140 mls/hr Documented By: VICKY Imaging Data Radiologist's Impression: Head CT 06/05/22 11:37 CT OF THE HEAD WITHOUT CONTRAST CLINICAL HISTORY: Headache. COMPARISON STUDY: No previous studies for comparison. CT DOSE: 1021.09 mGy.cm TECHNIQUE: Helical axial images of the head were obtained without IV contrast. Automated exposure control was utilized for the study. A dose lowering technique was utilized adhering to the principles of ALARA. FINDINGS: No acute intracranial hemorrhage, midline shift or mass effect is present. White 1matter hypodensity suggests small vessel disease. Bilateral basal ganglia calcification is noted. The ventricular system is unremarkable. The basal cisterns are patent. No extra-axial collections are present. There are no findings to suggest acute dural sinus thrombosis or acute territorial infarct. No significant calvarial abnormalities are present. Visualized portions of the sinuses and mastoid air cells are clear. IMPRESSION: No acute intracranial findings. ACT 112: Negative or not required by law. Electronically signed by: Erick Hale M.D. 06/05/2022 1:18 PM Abdomen/Pelvis CT 06/05/22 12:[address] WITHOUT CONTRAST HISTORY: Acute generalized abdominal pain with nausea, vomiting and fever abd pain n/v and fever TECHNIQUE: Multiaxial CT images of the abdomen and pelvis were performed without contrast. A dose lowering technique was utilized adhering to the principles of ALARA. COMPARISON STUDY: 06/23/2020 FINDINGS: Cardiomegaly with extensive coronary artery calcifications. Subsegmental bibasilar densities favoring atelectasis. No pneumatosis or pneumoperitoneum. The unenhanced spleen, pancreas and adrenal glands are within normal limits. Mildly contracted gallbladder. The liver is within normal limits. Mild nonspecific bilateral perinephric stranding. 4 mm hypodense focus of the inte rpolar left kidney on image 180 series 5 is too small to characterize however stable from prior suggestive of a probable proteinaceous or hemorrhagic cyst. Exophytic cyst of the inferior pole left kidney. Mild bilateral pelvocaliectasis. Indeterminate 1.67 m hypodense lesion of the superior pole rig ht kidney with Hounsfield unit of 19. No renal or ureteral calculi. Unremarkable urinary bladder. Atherosclerosis of the aorta without aneurysm. No lymphadenopathy identified. Tiny hiatal hernia. No bowel obstruction or bowel wall thickening. Scattered small large bowel air-fluid levels. Normal appendix. No ascites or mesenteric inflammation. There is an ovoid hypodense structure noted within the region of the right T12-L1 neural foramen measuring 1.7 cm on image 146 series 5, similar to prior. 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 Demineralized appearance of the bones. Degenerative changes of the spine, pelvis and hips. IMPRESSION: 1. No bowel obstruction or bowel wall thickening. Normal appendix. 2. Mild bilateral pelvocaliectasis. 3. Mild nonspecific bilateral perinephric stranding with an indeterminate 1.6 cm lesion of the superior interpolar right kidney, new from the 2020 exam. This lesion could be further evaluated with ultrasound. 4. Small hiatal hernia. ACT 112: Negative or not required by law. The above report was generated using voice recognition software. It may contain grammatical, syntax or spelling errors. Electronically signed by: Fazal Gagnon M.D. 06/05/2022 1:31 PM Chest X-Ray 06/05/22 14:42 XR chest 1V portable CLINICAL HISTORY: infection symptoms ?[facility]NA COMPARISON STUDY: Chest CT and chest radiograph March 09, 2021. FINDINGS: There is mild elevation of the right hemidiaphragm. No pneumothorax or pleural effusion is present. Bibasilar opacities favor atelectasis. There is mil d cardiomegaly without evidence for pulmonary edema. IMPRESSION: No acute cardiopulmonary findings. Bibasilar opacities which favor atelectasis. ACT 112: Negative or not required by law. Electronically signed by: Erick Hale M.D. 06/05/2022 3:22 PM Discharge Plan Visit Data Chief Complaint: Illness Stated Complaint: DIARRHEA, THROWING UP, SHAKING, FALL ED Provider: Wilfred Herrera Discharge Problem: Acute UTI, AMS (altered mental status), CINDY (acute kidney injury) Forms Stand Alone Forms: My [facility] [employer] Prescriptions Prescriptions: No Action simvastatin [Zocor] 20 mg tablet 20 mg PO DAILY Qty: 90 3RF Hold Instructions: while on paxlovid metoprolol tartrate 50 mg tablet 50 mg PO DAILY Qty: 90 3RF amlodipine 5 mg tablet 5 mg PO DAILY Qty: 90 3RF docusate sodium [Colace] 100 mg capsule 100 mg PO BID sulfamethoxazole-trimethoprim 800-160 mg tablet 1 tab PO BID Rx Instructions: STARTED 06/04/22 FOR 7 DAYS multivitamin with minerals Tablet 1 tab PO DAILY Referrals Referrals: Negar Hernandez MD [Primary Care Provider] -
[2022-06-05 11:42] LABS: Basophils # (auto) 0.02 K/uL (0-0.2); Basophils % (auto) 0.2 %; Eosinophils # (auto) 0.03 K/uL (0-0.50); Eosinophils % (auto) 0.2 %; Hematocrit (blood only) 34.2 % (37.0-47.0); Hemoglobin 11.7 g/dl (12.0-16.0); Immature Granulocytes # (auto) 0.05 K/uL (0.01-0.20); Immature Granulocytes % (auto) 0.4 %; Lymphocytes # (auto) 2.07 K/uL (1.2-3.4); Lymphocytes % (auto) 15.9 %; Mean Corpuscular Hemoglobin 29.9 pg (25.0-34.0); Mean Corpuscular Hgb Conc 34.2 g/dL (32.0-36.0); Mean Corpuscular Volume 87.5 fL (80.0-100.0); Neutrophils # (auto) 9.53 K/uL (1.40-6.50); Neutrophils % (auto) 73.3 %; Platelet Count 183 K/uL (130-400); RDW Coefficient of Variation 12.9 % (11.5-14.5); RDW Standard Deviation 40.8 fL (36.4-46.3); Red Blood Count 3.91 M/uL (4.20-5.40)
[2022-06-05 12:12] LABS: Albumin Globulin Ratio 0.9 (0.9-2); Albumin Level 3.7 gm/dl (3.4-5.0); BUN Creatinine Ratio 16.2 (10-20); Bilirubin,Total 0.8 mg/dl (0.2-1.0); Calcium 8.9 mg/dl (8.5-10.1); Est GFR (African American) 26.2 ml/min; Est GFR (Non-African American) 22.6 ml/min; Globulin 4.2 gm/dl (2.5-4.0); Total Protein 7.9 gm/dl (6.0-8.3)
--- NOTE | 2022-06-05 13:19 | CT Scan Report ---
CT OF THE HEAD WITHOUT CONTRAST CLINICAL HISTORY: Headache. COMPARISON STUDY: No previous studies for comparison. CT DOSE: 1021.09 mGy.cm TECHNIQUE: Helical axial images of the head were obtained without IV contrast. Automated exposure con trol was utilized for the study. A dose lowering technique was utilized adhering to the principles o f ALARA. FINDINGS: No acute intracranial hemorrhage, midline shift or mass effect is present. White 1matter hy podensity suggests small vessel disease. Bilateral basal ganglia calcification is noted. The ventricu lar system is unremarkable. The basal cisterns are patent. No extra-axial collections are present. Th ere are no findings to suggest acute dural sinus thrombosis or acute territorial infarct. No signific ant calvarial abnormalities are present. Visualized portions of the sinuses and mastoid air cells are clear. IMPRESSION: No acute intracranial findings. ACT 112: Negative or not required by law. Electronically signed by: Erick Hale M.D. 06/05/2022 1:18 PM
--- NOTE | 2022-06-05 13:33 | CT Scan Report ---
ABDOMEN AND PELVIS CT WITHOUT CONTRAST HISTORY: Acute generalized abdominal pain with nausea, vomiting and fever abd pain n/v and fever TECHNIQUE: Multiaxial CT images of the abdomen and pelvis were performed without contrast. A dose lo wering technique was utilized adhering to the principles of ALARA. COMPARISON STUDY: 06/23/2020 FINDINGS: Cardiomegaly with extensive coronary artery calcifications. Subsegmental bibasilar densitie s favoring atelectasis. No pneumatosis or pneumoperitoneum. The unenhanced spleen, pancreas and adrenal glands are within normal limits. Mildly contracted gallbl adder. The liver is within normal limits. Mild nonspecific bilateral perinephric stranding. 4 mm hypo dense focus of the interpolar left kidney on image 180 series 5 is too small to characterize however stable from prior suggestive of a probable proteinaceous or hemorrhagic cyst. Exophytic cyst of the i nferior pole left kidney. Mild bilateral pelvocaliectasis. Indeterminate 1.67 m hypodense lesion of t he superior pole right kidney with Hounsfield unit of 19. No renal or ureteral calculi. Unremarkable urinary bladder. Atherosclerosis of the aorta without aneurysm. No lymphadenopathy identified. Tiny hiatal hernia. No bowel obstruction or bowel wall thickening. Scattered small large bowel air-fl uid levels. Normal appendix. No ascites or mesenteric inflammation. There is an ovoid hypodense struc ture noted within the region of the right T12-L1 neural foramen measuring 1.7 cm on image 146 series 5, similar to prior. 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 Additional probable Ta rlov cyst of the sacrum on image 341 measures 1.6 cm. Demineralized appearance of the bones. Degenera tive changes of the spine, pelvis and hips. IMPRESSION: 1. No bowel obstruction or bowel wall thickening. Normal appendix. 2. Mild bilateral pelvocaliectasis. 3. Mild nonspecific bilateral perinephric stranding with an indeterminate 1.6 cm lesion of the superi or interpolar right kidney, new from the 2020 exam. This lesion could be further evaluated with ultra sound. 4. Small hiatal hernia. ACT 112: Negative or not required by law. The above report was generated using voice recognition software. It may contain grammatical, syntax o r spelling errors. Electronically signed by: Fazal Gagnon M.D. 06/05/2022 1:31 PM
[2022-06-05 14:08] LABS: Appearance Urine Clear (Clear); Bacteria Urine Automated Negative (Negative); Bilirubin Urine Negative (Negative); Blood Urine Trace (Negative); Cast Urine Automated 0 /lpf (0-5); Color Urine Yellow; Glucose Urine UA Negative (Negative); Ketones Urine Negative (Negative); Leukocyte Esterase Urine Negative (Negative); Nitrite Urine Negative (Negative); Protein Urine Negative (Negative); RBC Urine Automated 0-4 /hpf (0-4); Specific Gravity Urine 1.004 (1.000-1.030); Urobilinogen Urine Negative (Negative)
[2022-06-05] MEDS ORDERED: cefTRIAXone SODIUM 2,000 MG/70 ML BAG IV STA (14:11)
--- NOTE | 2022-06-05 14:46 | History & Physical Report ---
Date of Service June 05, 2022 Assessment & Plan (1) Acute confusion: Plan: -Admit to med/surge -The patient is currently afebrile, hemodynamically stable, and stable on RA -The patient has been more confused over the past week with her acute illness, CT of the head was negative and she is without focal neuro defects on exam -Her confusion is likely due to dehydration and her CINDY -Her [facility] is not overtly concerning for a UTI at this time. Her lower abdominal discomfort is likely due to her recent diarrheal illness -She has completed 3 doses of bactrim and received a dose of ceftriaxone in the ED, will hold additional abx at this time -Blood cultures were obtained in the ED, follow for results. -Will try to call [facility] to see if they cultured her urine yesterday -S/P 1L NSS in the ED, will continue with light IV hydration with LR at 80 mL/hr x 2 doses -She is without acute trauma and with a CK of 505 after her fall, continue to monitor with repeat CK at 8 pm tonight -Fall precautions ordered -AM CBC, BMP (2) Acute kidney injury superimposed on CKD: Plan: -Cr today is 1.95, baseline is approximately 1.1 -Liekly due to dehydration from her diarrhea and current bactrim use -Hold bactrim for now, stool studies ordered -Continue IV fluids and avoid nephrotoxic agents -CT of the abd/pelvis showed BL bilateral perinephric stranding with an indeterminate 1.6 cm lesion of the superior interpolar right kidney, as well as BL pelvocaliectasis. She has good urine output at this time -Will obtain BL renal US and consult Urololgy -Monitor AM renal function and electrolytes (3) Hyponatremia: Plan: -Sodium is a 132 today -Likely due to her acute dehydration -Monitor repeat sodium in the am after IV fluids (4) Leukocytosis: Plan: -Patient has a mild leukocytosis of 13, does not appear toxic at this time -Could be reactive from being on the ground and her acute dehydration -Continue to follow the infectious workup and trend her WBC (5) HTN (hypertension): Plan: -Stable -Continue metoprolol and amlodipine (6) Mixed hyperlipidemia: Plan: -Hold statin for now with her elevated CK level Plan The patient was discussed with Dr. Mendez at the time of the admission History of Present Illness Chief Complaint: Abdominal pain Primary Care Provider: Negar Hernandez MD Jose is an 87 year old female with a PMH significant for HTN, anxiety, previous DVT hyperlipidemia, stage 3 CKD, chronic back pain, and prediabetes who presented to the [facility] ED on 06/05/22 due to continued urinary symptoms and abdominal discomfort. In the ED the patient was found to be afebrile, hemodynamically stable, and stable on RA. Labs were remarkable for a WBC of 13 with left shift of 9.53, stable Hgb and platelets, cr of 1.97 (baseline appears to be around 1.1), sodium of 132, BUN of 32, otherwise stable electrolytes, total CK of 505, LFTs WNL, UA today showing trace blood but otherwise negative. CT of the head was read as "No acute intracranial findings.". CT of the abdomen/pelvis without IV contrast was read as "1. No bowel obstruction or bowel wall thickening. Normal appendix. 2. Mild bilateral pelvocaliectasis. 3. Mild nonspecific bilateral perinephric stranding with an indeterminate 1.6 cm lesion of the superior interpolar right kidney, new from the 2020 exam. This lesion could be further evaluated with ultrasound. 4. Small hiatal hernia.". Prior to admission the patient was given 1L NSS bolus and one dose of ceftriaxone. At the time of the exam the patient was resting comfortably in bed in no acute distress with her son sitting bedside, history was obtained from both. They state that the patient started to develop fevers, chills, malaise, multiple episodes of non-bloody diarrhea, dysuria, and increased urinary frequency over the past 5-7 days. Yesterday she went to [facility] for her symptoms and a UA was obtained. Review of the ua shows trace ketones, moderate blood, 100 protein, negative nitrites and trace leukocyte esterase. She was started on Bactrim yesterday and has had 3 total doses so far. Last night she states that she "slid" out of bed, she adamantly denies that she fell out of bed. She states that she was rolling in bed and did not realize where the edge of the bed was, she states that she slid slowly out of bed and does not exactly remember what part of her body she landed on. She denies hitting her hed or losing consciousness. Her son states that she was on the ground overnight until she was able to drag herself to her bathroom and lift herself back up. She current denies any pain from her fall. Her son states that she is still acting more confused than her baseline. He states that she thinks events that occurred yesterday happened 2-3 days ago. She does not feel as though her symptoms have changed since starting the Bactrim. She confirms that she is still making plenty of non-bloody urine at this time. When asked, she notes some mild lower abdominal discomfort that has not radiated. We discussed code status, she is a Full Code and her son would make decisions for her if she could not make them herself. Please refer to Dr. Mendez's attestation for any changes to the treatment plan Allergies Allergy/AdvReac Type Severity Reaction Status Date / Time No Known Allergies Allergy Verified 06/05/22 15:10 Home Medications Medication Instructions Recorded Confirmed Type docusate sodium 100 mg capsule 100 mg PO BID 12/11/21 06/05/22 History (Colace) simvastatin 20 mg tablet (Zocor) 20 mg PO DAILY #90 tabs 12/19/21 06/05/22 Rx metoprolol tartrate 50 mg tablet 50 mg PO DAILY #90 tabs 01/02/22 06/05/22 Rx amlodipine 5 mg tablet 5 mg PO DAILY #90 tabs 03/20/22 06/05/22 Rx multivitamin with minerals 1 tab PO DAILY 06/05/22 06/05/22 History sulfamethoxazole 800 1 tab PO BID 06/05/22 06/05/22 History mg-trimethoprim 160 mg tablet Past Med/Surg History Medical History Anxiety Chronic venous insufficiency CKD (chronic kidney disease) stage 3, GFR 30-59 ml/min History of DVT (deep vein thrombosis) LLE 02/2021 Unprovoked HTN (hypertension) Lumbar radicular pain Lumbar spondylosis Mixed hyperlipidemia No pertinent past medical history Osteoarthritis of left hip Osteoarthritis of right knee Prediabetes Rotator cuff tendonitis Sacroiliac joint pain Spinal stenosis of lumbar region Surgical History History of hysterectomy Hx of cataract surgery No pertinent past surgical history Family History Sister Breast cancer Denies family history of Ovarian cancer Prostate cancer Lung cancer Colorectal cancer Social History Smoking Status: Never smoker Second Hand Exposure: No; Do You Dip or Chew Tobacco: No; Tobacco Cessation Education Requested by Patient: No Hx Alcohol Use: No Hx Substance Use: No Preferred Language: French Communication Ability: Effective Secretary Book Keeper Required: No Beliefs That Will Affect Care: None marital status: / Current Living Situation: Alone current occupational status: retired Other Information That Helps Us Care for You: No Feels Safe at Home: Yes Safety Concerns: Feels Safe At This Time caffeine: No Dental Care, Regularly: Yes Seatbelt Use: always Sunscreen Use: Yes Assistive Devices: Glasses Review of Systems Review of Systems: Denies current headache, changes in vision, hearing, taste, and smell, chest pain, SOB, cough, nausea, vomiting, diarrhea, hematemesis, and melena All systems have been reviewed and are otherwise negative. Physical Exam Physical Exam: Physical Exam: General: In no acute distress, stated age, non-toxic appearing HEENT: Normocephalic, atraumatic, no scleral icterus, pupils around round, symmetrical, and reactive to light, dry mucus membranes, trachea midline, no thyromegaly Chest/Pulm: No respiratory distress, symmetrical chest expansion, clear breath sounds throughout Cardiac: RRR, no murmurs noted Abdomen: Negative for ascites and bruising, normoactive bowel sounds, soft, non-tender to palpation throughout Musculoskeletal: Symmetrical and without signs of acute trauma, upper and lower extremities with full ROM, no atrophy, spasticity, or flaccidity Extremities: Radial, dorsalis pedis, and posterior tibial pulses are intact and symmetrical, no edema noted in the BL LE's Skin: Warm, dry, no rashes , lesions, or scars noted Neuro: Alert and oriented to person, place, month, year, and president, no focal defects, CN II-XII tested and intact, no tremors noted Psych: No acute distress, calm and cooperative during the exam Results & Data Results & Data ([facility]) Vital Signs (Past 12 Hours) Vital Signs Temp Pulse Resp BP Pulse Ox O2 Del Method 06/05/22 11:58 63 21 98 Room Air 06/05/22 10:44 36.6 C 69 18 117/71 96 Room Air Laboratory Results Abnormal lab results 06/05/22 06/05/22 06/05/22 Range/Units 11:25 11:25 Unknown WBC 13.00 H (4.8-10.8) K/ul RBC 3.91 L (4.20-5.40) M/uL Hgb 11.7 L (12.0-16.0) g/dl Hct 34.2 L (37.0-47.0) % MPV 9.0 L (9.4-12.4) fL Neut # (Auto) 9.53 H (1.40-6.50) K/uL [place] # (Auto) 1.30 H (0.11-0.59) K/uL Sodium 132 L (136-145) mmol/L BUN 32 H (6-23) mg/dl Creatinine 1.97 H (0.6-1.2) mg/dl Glucose 104 H (70-99(Fasting)) mg/dl Total Creatine Kinase 505 H (26-192) U/L Globulin 4.2 H (2.5-4.0) gm/dl Urine Blood Trace H (Negative) U Epithel Cells (Auto) 5-10 H (0-5) /lpf Diagnostic Findings Head CT 06/05/22 11:37 CT OF THE HEAD WITHOUT CONTRAST CLINICAL HISTORY: Headache. COMPARISON STUDY: No previous studies for comparison. CT DOSE: 1021.09 mGy.cm TECHNIQUE: Helical axial images of the head were obtained without IV contrast. Automated exposure control was utilized for the study. A dose lowering technique was utilized adhering to the principles of ALARA. FINDINGS: No acute intracranial hemorrhage, midline shift or mass effect is present. White 1matter hypodensity suggests small vessel disease. Bilateral basal ganglia calcification is noted. The ventricular system is unremarkable. The basal cisterns are patent. No extra-axial collections are present. There are no findings to suggest acute dural sinus thrombosis or acute territorial infarct. No significant calvarial abnormalities are present. Visualized portions of the sinuses and mastoid air cells are clear. IMPRESSION: No acute intracranial findings. ACT 112: Negative or not required by law. Electronically signed by: Erick Hale M.D. 06/05/2022 1:18 PM Abdomen/Pelvis CT 06/05/22 12:[address] WITHOUT CONTRAST HISTORY: Acute generalized abdominal pain with nausea, vomiting and fever abd pain n/v and fever TECHNIQUE: Multiaxial CT images of the abdomen and pelvis were performed without contrast. A dose lowering technique was utilized adhering to the principles of ALARA. COMPARISON STUDY: 06/23/2020 FINDINGS: Cardiomegaly with extensive coronary artery calcifications. Subsegmental bibasilar densities favoring atelectasis. No pneumatosis or pneumoperitoneum. The unenhanced spleen, pancreas and adrenal glands are within normal limits. Mildly contracted gallbladder. The liver is within normal limits. Mild nonspecific bilateral perinephric stranding. 4 mm hypodense focus of the interpolar left kidney on image 180 series 5 is too small to characterize however stable from prior suggestive of a probable proteinaceous or hemorrhagic cyst. Exophytic cyst of the inferior pole left kidney. Mild bilateral pelvocaliectasis. Indeterminate 1.67 m hypodense lesion of the superior pole right kidney with Hounsfield unit of 19. No renal or ureteral calculi. Unremarkable urinary bladder. Atherosclerosis of the aorta without aneurysm. No lymphadenopathy identified. Tiny hiatal hernia. No bowel obstruction or bowel wall thickening. Scattered small large bowel air-fluid levels. Normal appendix. No ascites or mesenteric inflammation. There is an ovoid hypodense structure noted within the region of the right T12-L1 neural foramen measuring 1.7 cm on image 146 series 5, similar to prior. 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 Demineralized appearance of the bones. Degenerative changes of the spine, pelvis and hips. IMPRESSION: 1. No bowel obstruction or bowel wall thickening. Normal appendix. 2. Mild bilateral pelvocaliectasis. 3. Mild nonspecific bilateral perinephric stranding with an indeterminate 1.6 cm lesion of the superior interpolar right kidney, new from the 2020 exam. This lesion could be further evaluated with ultrasound. 4. Small hiatal hernia. ACT 112: Negative or not required by law. The above report was generated using voice recognition software. It may contain grammatical, syntax or spelling errors. Electronically signed by: Fazal Gagnon M.D. 06/05/2022 1:31 PM Chest X-Ray 06/05/22 14:42 XR chest 1V portable CLINICAL HISTORY: infection symptoms ?[facility] COMPARISON STUDY: Chest CT and chest radiograph March 09, 2021. FINDINGS: There is mild elevation of the right hemidiaphragm. No pneumothorax or pleural effusion is present. Bibasilar opacities favor atelectasis. There is mild cardiomegaly without evidence for pulmonary edema. IMPRESSION: No acute cardiopulmonary findings. Bibasilar opacities which favor atelectasis. ACT 112: Negative or not required by law. Electronically signed by: Erick Hale M.D. 06/05/2022 3:22 PM ECG Additional Comments: No ECG available at the time of the admission, will obtain one now Code Status & VTE Plan Code Status FUll code VTE Prophylaxis Plan VTE Prophylaxis will be ordered: Yes Supervising Physician Co-Signing Physician Notes I personally saw and examined the patient. I verified all gutierres points and agree with Dae Burnett PA-C with the following exceptions and/or additions: 87 year old with recent dysuria but current main symptom of b/l flank pain. Will need to track down [facility] urine culture as UA here may be unremarkable due to Bactrim given. Will send urine here for culture regardless. Blood cultures taken after ceftriaxone given as not ordered in ER. History and imaging most consistent with b/l acute pyelonephritis however and will continue ceftriaxone. Procalcitonin and CRP appear out of proportion to clinic presentation however - continue to trend for resolution with antibiotics. PG Care Time/CCT Total # of Minutes Spent Total Time Spent with Patient: Total time spent is greater than 50% in coordination of care (as documented) at patient's floor/unit and/or counseling patient: Coding [place] [address] INT INP/OBS CARE 3/75MIN Patient Type Established Medical Decision Making High Complexity Diagnoses Acute confusion R41.0 Acute kidney injury superimposed on CKD N17.9; N18.9 Hyponatremia E87.1 Leukocytosis D72.829 HTN (hypertension) I10 Mixed hyperlipidemia E78.2
--- NOTE | 2022-06-05 15:24 | XRay Report ---
XR chest 1V portable CLINICAL HISTORY: infection symptoms ?[facility]NA COMPARISON STUDY: Chest CT and chest radiograph March 09, 2021. FINDINGS: There is mild elevation of the right hemidiaphragm. No pneumothorax or pleural effusion is present. Bibasilar opacities favor atelectasis. There is mild cardiomegaly without evidence for pulmo nary edema. IMPRESSION: No acute cardiopulmonary findings. Bibasilar opacities which favor atelectasis. ACT 112: Negative or not required by law. Electronically signed by: Erick Hale M.D. 06/05/2022 3:22 PM
[2022-06-05 15:40] LABS: Influenza A virus by PCR Negative (Neg); Influenza B virus by PCR Negative (Neg); RSV by PCR Negative (Neg); SARS CoV2 RNA(COVID-19) Ceph NEGATIVE (Negative)
[2022-06-05 17:02] LABS: C Reactive Protein 27.79 mg/dl (0-0.5); Magnesium 2.2 mg/dl (1.7-2.4); Phosphorus 3.6 mg/dl (2.5-4.9)
[2022-06-05] MEDS: LACTATED RINGER'S 1,000 ML IV SCH (17:29)
--- NOTE | 2022-06-05 19:16 | Ultrasound Report ---
ULTRASOUND KIDNEYS AND BLADDER CLINICAL HISTORY: Follow-up right renal lesion. COMPARISON STUDY: Abdominal CT dated 06/05/2022 TECHNIQUE: Real-time, grayscale, and color flow sonography of the kidneys and bladder is performed. I mages are reviewed in the transverse and longitudinal planes. FINDINGS: Kidneys: The kidneys demonstrating mild cortical atrophy. Echotexture is normal. The right kidney ashley sures 10.2 cm in length and the left kidney measures 9.4 cm in length. There is fullness of the renal collecting systems without hydronephrosis. No shadowing renal calculi are identified. A 1.7 cm cyst is noted in the interpolar right kidney. This corresponds to the lesion in question by CT. This may c ontain a tiny calcification. A 1.2 cm cyst is noted on the left. There is no sonographic evidence of contour deforming renal mass lesion. No perinephric fluid is identified. Bladder: The partially distended bladder is normal in appearance. Bilateral ureteral jets were seen. IMPRESSION: 1. The kidneys demonstrate mild cortical atrophy and are without hydronephrosis. 2. There are bilateral renal cysts. A 1.7 cm cyst in the interpolar right kidney corresponds to the l esion seen by CT. 3. The bladder is normal as imaged. ACT 112: Negative or not required by law. Electronically signed by: Tanner Corral M.D. 06/05/2022 7:15 PM
[2022-06-05] MEDS: DOCUSATE SODIUM 100 MG CAP PO SCH (21:26)
[2022-06-05] MEDS: ACETAMINOPHEN 325 MG TAB PO PRN (21:32)
--- NOTE | 2022-06-05 21:52 | Urology Consultation ---
Date of Consultation June 05, 2022 Assessment & Plan (1) Renal cyst: The patient has been admitted on the hospitalist service. It appears that the renal lesion noted on CT scan represents a cyst via ultrasound. For the present time we will clinically monitor this. Patient will be reevaluated by our atte nding urologist in the morning to determine if any further imaging or evaluation concerning this needs to be done. At the present time there does not appear to a be any need for any emergent procedures. The primary service feels that patient's confusion is likely due to dehydration and acute kidney injury and hydration measures are currently being employed. We will defer the remainder of plan by this service. Supervising Physician Co-Signing Physician Notes Reviewed patient's imaging. AsCT scan was noncontrast, unable to determine if mass enhances. That being said, any mass under 3 cm has a less than 1% chance of becoming metastatic and given her age, would likely recommend active surveillance even if this were deemed to be cancer. Can set up outpatient follow-up for further discussion. History of Present Illness Reason for Consultation: Right renal lesion Attending Physician: Marcello Mendez MD History of Present Illness This is an 87-year-old female who presented to the emergency department secondary to dysuria, urinary urgency and urinary frequency that she notes has been going on for approximately 1 week. She notes that she is also generally not been feeling well with somewhat decreased appetite and some intermittent nausea vomiting and diarrhea. Patient says that she recently went to [facility] where she was diagnosed with a urinary tract infection and she was placed on Bactrim which she believes she took for 3 days. Prior to presentation to the emergency department last evening she fell out of bed. She denies hitting her head or losing consciousness. She does note that despite taking Bactrim she has not noted any significant improvement. In addition to the patient's urinary symptoms listed above she says that she has not noted any hematuria. She does note some minor right flank pain but has not on the left. She says she is unsure if she has been losing weight. Since arrival to the hospital the patient has had labs and imaging which independent reviewed. CT scan of the head showed no acute intracranial findings. A chest x-ray showed bibasilar atelectasis which was felt to represent atelectasis. A CT scan of the abdomen and pelvis showed the patient had a normal appendix with no bowel obstruction or bowel wall thickening. There is some nonspecific bilateral perinephric stranding of the kidneys noted. There is also an indeterminate 1.6 cm lesion of the superior right kidney. This was new when compared to CT scan from 2020. A follow-up renal ultrasound was performed where patient was noted to have bilateral renal cysts. There was a 1.7 cm cyst in the superior right kidney that correspond to the lesion noted on CT scan. Labs include a CBC her white blood cell count had a slight elevation at 13. Hemoglobin and hematocrit were 11.7 and 34.2. Platelet count was noted to be normal. Chemistry profile showed sodium is 132 with a normal potassium. Her BUN and creatinine were 32 and 1.9. Review of records did show that over the past year patient's creatinine had ranged anywhere from 1.1-1.8. The patient's total creatinine kinase was elevated at 531. Her C-reactive protein was elevated at 27.7 and procalcitonin was elevated at 117. Urinalysis was not indicative of infection. A COVID test was noted be negative as well as serologies for influenza A and RSV. Since arrival to hospital the patient has received antibiotics in form of Rocephin and hydration measures with intravenous fluids. At the time of my interview the patient was resting comfortably in bed and she was in no distress. Allergies Allergy/AdvReac Type Severity Reaction Status Date / Time No Known Allergies Allergy Verified 06/05/22 15:10 Home Medications Medication Instructions Recorded Confirmed Type docusate sodium 100 mg capsule 100 mg PO BID 12/11/21 06/05/22 History (Colace) simvastatin 20 mg tablet (Zocor) 20 mg PO DAILY #90 tabs 12/19/21 06/05/22 Rx metoprolol tartrate 50 mg tablet 50 mg PO DAILY #90 tabs 01/02/22 06/05/22 Rx amlodipine 5 mg tablet 5 mg PO DAILY #90 tabs 03/20/22 06/05/22 Rx multivitamin with minerals 1 tab PO DAILY 06/05/22 06/05/22 History sulfamethoxazole 800 1 tab PO BID 06/05/22 06/05/22 History mg-trimethoprim 160 mg tablet Patient History Medical History Anxiety Chronic venous insufficiency CKD (chronic kidney disease) stage 3, GFR 30-59 ml/min History of DVT (deep vein thrombosis) LLE 02/2021 Unprovoked HTN (hypertension) Lumbar radicular pain Lumbar spondylosis Mixed hyperlipidemia No pertinent past medical history Osteoarthritis of left hip Osteoarthritis of right knee Prediabetes Rotator cuff tendonitis Sacroiliac joint pain Spinal stenosis of lumbar region Surgical History History of hysterectomy Hx of cataract surgery No pertinent past surgical history Family History Sister Breast cancer Denies family history of Ovarian cancer Prostate cancer Lung cancer Colorectal cancer Social History Smoking Status: Never smoker Second Hand Exposure: No; Do You Dip or Chew Tobacco: No; Tobacco Cessation Education Requested by Patient: No Hx Alcohol Use: No Hx Substance Use: No Preferred Language: Senegalese Communication Ability: Effective Information Tech Required: No Beliefs That Will Affect Care: None marital status: / Current Living Situation: Alone current occupational status: retired Other Information That Helps Us Care for You: No Feels Safe at Home: Yes Safety Concerns: Feels Safe At This Time caffeine: No Dental Care, Regularly: Yes Seatbelt Use: always Sunscreen Use: Yes Assistive Devices: Glasses Review of Systems Constitutional: no fever and no chills Eyes: + corrective lenses Ear, Nose, Mouth, Throat: no ear pain Respiratory: no cough and no dyspnea Cardiovascular: no chest pain Gastrointestinal: as per Subjective / HPI Genitourinary: as per Subjective / HPI Musculoskeletal: + back pain (Right flank) Integumentary: no rash Neurologic: + generalized weakness; no localized weakness Physical Exam Constitutional: WD/WN, vitals as above Eyes: no conjunctival abnormality Wears glasses ENMT: Ears: no hearing impairment and no external ear abnormality Mouth: no oropharynx abnormality Neck: trachea midline Respiratory: normal respiratory effort; no respiratory distress and no labored breathing Cardiovascular: Rate/Rhythm: regular rate and regular rhythm Gastrointestinal (Abdomen): Abdomen is soft and nondistended. It is nonrigid. There is no pain with palpation. There is no rebound tenderness or guarding Musculoskeletal: No calf tenderness Skin: no rashes Neurologic: moves all extremities Genitourinary: + CVA tenderness (Slight tenderness with percussion noted on right, not on left) Results & Data ([facility]) Vital Signs (Past 12 Hours) Vital Signs Temp Pulse Pulse Resp BP BP BP 06/05/22 21:31 37.4 C 89 20 135/57 L 06/05/22 18:12 06/05/22 17:30 37.2 C 96 H 22 170/79 H 06/05/22 11:58 63 21 06/05/22 10:44 36.6 C 69 18 117/71 Pulse Ox O2 Del Method 06/05/22 21:31 95 Room Air 06/05/22 18:12 Room Air 06/05/22 17:30 97 Room Air 06/05/22 11:58 98 Room Air 06/05/22 10:44 96 Room Air PG Care Time/CCT Total # of Minutes Spent Total Time Spent with Patient: Total time spent is greater than 50% in coordination of care (as documented) at patient's floor/unit and/or counseling patient: Coding Level of Care Code 91995 INT INP/OBS CARE 255MIN Diagnoses Renal cyst N28.1
[2022-06-05 22:36] LABS: Adenovirus F 40/41 PCR Not Detected (NotDetected); Astrovirus PCR Not Detected (NotDetected); Campylobacter PCR Not Detected (NotDetected); Cryptosporidium PCR Not Detected (NotDetected); Cyclospora cayetanensis PCR Not Detected (NotDetected); Entamoeba histolytica PCR Not Detected (NotDetected); Enteroaggregative E.coli(EAEC) Not Detected (NotDetected); Enteropathogenic E.coli (EPEC) Not Detected (NotDetected); Enterotoxigenic E.coli (ETEC) Not Detected (NotDetected); Giardia lamblia PCR Not Detected (NotDetected); Norovirus GI/GII PCR Not Detected (NotDetected); Plesiomonas shigelloides PCR Not Detected (NotDetected); Rotavirus A PCR Not Detected (NotDetected); Salmonella PCR Not Detected (NotDetected); Sapovirus PCR Not Detected (NotDetected); Shiga-like Toxin E.coli (STEC) Not Detected (NotDetected); Shigella/Enteroinvasive E.coli Not Detected (NotDetected); Vibrio cholerae PCR Not Detected (NotDetected); Vibrio species PCR Not Detected (NotDetected); Yersinia enterocolitica PCR Not Detected (NotDetected)
--- NOTE | 2022-06-06 08:16 | Electrocardiogram Report ---
Test Reason : Blood Pressure : / mmHG Vent. Rate : 085 BPM Atrial Rate : 085 BPM P-R Int : 168 ms QRS Dur : 122 ms QT Int : 420 ms P-R-T Axes : 071 -42 075 degrees QTc Int : 499 ms Sinus rhythm with occasional Premature ventricular complexes Left axis deviation Left bundle branch block Abnormal ECG When compared with ECG of 09-MAR-2021 09:17, Premature ventricular complexes are now Present Confirmed by Lalit Chinchilla ([id number]) on 06/06/2022 8:16:10 AM Referred By: REFERRED SELF Confirmed By:Lalit Chinchilla
[2022-06-06 08:21] LABS: Hematocrit (blood only) 31.5 % (37.0-47.0); Hemoglobin 10.6 g/dl (12.0-16.0); Mean Corpuscular Hemoglobin 29.7 pg (25.0-34.0); Mean Corpuscular Hgb Conc 33.7 g/dL (32.0-36.0); Mean Corpuscular Volume 88.2 fL (80.0-100.0); Mean Platelet Volume 8.8 fL (9.4-12.4); Platelet Count 130 K/uL (130-400); RDW Coefficient of Variation 12.7 % (11.5-14.5); RDW Standard Deviation 40.8 fL (36.4-46.3); Red Blood Count 3.57 M/uL (4.20-5.40); White Blood Count 7.53 K/ul (4.8-10.8)
[2022-06-06 08:36] LABS: BUN Creatinine Ratio 16.8 (10-20); C Reactive Protein 23.74 mg/dl (0-0.5); Calcium 8.5 mg/dl (8.5-10.1); Creatinine Clr Calc Pharmacy 22.8 ml/min; Est GFR (Non-African American) 30.2 ml/min; Potassium 3.9 mmol/L (3.5-5.1)
[2022-06-06] MEDS: DOCUSATE SODIUM 100 MG CAP PO SCH ×2 (08:48→20:33)
[2022-06-06] MEDS: METOPROLOL TARTRATE 50 MG TAB PO SCH (08:48)
[2022-06-06] MEDS: LACTATED RINGER'S 1,000 ML IV SCH (08:49)
--- NOTE | 2022-06-06 09:36 | Hospitalist Progress Note ---
Date of Service June 06, 2022 Assessment & Plan (1) Acute confusion: Plan: -The patient remains afebrile, hemodynamically stable, and stable on RA 94% -CT of the head was negative and she is without focal neuro defects on exam -Confusion was likely due to dehydration and her CINDY -Her UA from [facility] is not overtly concerning for a UTI and repeat urine culture is pending. at this time. -She has completed 3 doses of bactrim outpatient and currently on ceftriaxone 2mg IV daily -Blood cultures were obtained in the ED and no growth thus far -Fall precautions ordered -Continue to monitor AM labs (2) Acute kidney injury superimposed on CKD: Plan: -Cr today is 1.55, baseline is approximately 1.1 -Likely due to dehydration from her diarrhea and/or previous Bactrim use -Hold bactrim for now, stool studies negative -Continue IV fluids and avoid nephrotoxic agents -Monitor AM renal function and electrolytes (3) Hyponatremia: Plan: -Sodium improved to 141 today -Likely due to her acute dehydration -Monitor repeat sodium in the am (4) Leukocytosis: Plan: -Patient has a mild leukocytosis of 13 on admission, does not appear toxic at this time and now WBC normal at 7.53 -Could be reactive from being on the ground and her acute dehydration -Continue to follow the infectious workup and trend her WBC -If urine negative consider stopping ceftriaxone (5) HTN (hypertension): Plan: -Stable -Continue metoprolol and amlodipine (6) Mixed hyperlipidemia: Plan: -Hold statin for now with her elevated CK level (7) Renal cyst: Plan: Urology consulted and reviewed the CT and the Renal U/S the lesion was noted to be a cyst. Urology arranged for an outpatient follow up for further discussion and continued monitoring. Plan The patient was discussed with Dr. Mendez at the time of the admission Admission and Anticipated Discharge Date Admission Date: June 05, 2022 Subjective Patient seen this afternoon. She is laying in bed and her daughter is at bedside. She states she is feeling some better. She denies any current abdominal pain, nausea or vomiting. She is still having some diarrhea but much less frequency and denies any bleeding. Review of Systems Review of Systems: all ROS negative unless stated + above. Physical Exam Constitutional: WD/WN, vitals as above Neck: trachea midline, no thyromegaly Respiratory: normal respiratory effort, lungs clear to auscultation Cardiovascular: Rate/Rhythm: regular rate and regular rhythm Gastrointestinal (Abdomen): normal bowel sounds, soft, nontender, no hepatosplenomegaly Neurologic: PERRL, EOMI, accommodation nl, no face palsy, no dysarthria Psychiatric: A+Ox3, euthymic affect Results & Data Results & Data ([facility]) Vital Signs (Past 12 Hours) Vital Signs Temp Pulse Resp BP Pulse Ox O2 Del Method 06/06/22 07:45 Room Air 06/06/22 07:52 36.8 C 78 16 130/65 97 Room Air Laboratory Results Abnormal lab results 06/05/22 06/05/22 06/05/22 Range/Units 11:25 11:25 11:25 WBC 13.00 H (4.8-10.8) K/ul RBC 3.91 L (4.20-5.40) M/uL Hgb 11.7 L (12.0-16.0) g/dl Hct 34.2 L (37.0-47.0) % MPV 9.0 L (9.4-12.4) fL Neut # (Auto) 9.53 H (1.40-6.50) K/uL Mcdowell # (Auto) 1.30 H (0.11-0.59) K/uL ESR 74 H (0-30) mm/hr Sodium 132 L (136-145) mmol/L Chloride (98-107) mmol/L Carbon Dioxide (21-32) mmol/L Anion Gap (3-11) BUN 32 H (6-23) mg/dl Creatinine 1.97 H (0.6-1.2) mg/dl Glucose 104 H (70-99(Fasting)) mg/dl Total Creatine Kinase 505 H (26-192) U/L C-Reactive Protein 27.79 H (0-0.5) mg/dl Globulin 4.2 H (2.5-4.0) gm/dl Procalcitonin (0-0.5) ng/ml Urine Blood (Negative) U Epithel Cells (Auto) (0-5) /lpf 06/05/22 06/05/22 06/05/22 Range/Units 11:30 16:29 Unknown WBC (4.8-10.8) K/ul RBC (4.20-5.40) M/uL Hgb (12.0-16.0) g/dl Hct (37.0-47.0) % MPV (9.4-12.4) fL Neut # (Auto) (1.40-6.50) K/uL Mcdowell # (Auto) (0.11-0.59) K/uL ESR (0-30) mm/hr Sodium (136-145) mmol/L Chloride (98-107) mmol/L Carbon Dioxide (21-32) mmol/L Anion Gap (3-11) BUN (6-23) mg/dl Creatinine (0.6-1.2) mg/dl Glucose (70-99(Fasting)) mg/dl Total Creatine Kinase 531 H (26-192) U/L C-Reactive Protein (0-0.5) mg/dl Globulin (2.5-4.0) gm/dl Procalcitonin 117.06 H (0-0.5) ng/ml Urine Blood Trace H (Negative) U Epithel Cells (Auto) 5-10 H (0-5) /lpf 06/06/22 06/06/22 06/06/22 Range/Units 07:54 07:54 07:54 WBC (4.8-10.8) K/ul RBC 3.57 L (4.20-5.40) M/uL Hgb 10.6 L (12.0-16.0) g/dl Hct 31.5 L (37.0-47.0) % MPV 8.8 L (9.4-12.4) fL Neut # (Auto) (1.40-6.50) K/uL Mcdowell # (Auto) (0.11-0.59) K/uL ESR (0-30) mm/hr Sodium (136-145) mmol/L Chloride 109 H (98-107) mmol/L Carbon Dioxide 20 L (21-32) mmol/L Anion Gap 12 H (3-11) BUN 26 H (6-23) mg/dl Creatinine 1.55 H D (0.6-1.2) mg/dl Glucose (70-99(Fasting)) mg/dl Total Creatine Kinase (26-192) U/L C-Reactive Protein 23.74 H (0-0.5) mg/dl Globulin (2.5-4.0) gm/dl Procalcitonin 56.24 H (0-0.5) ng/ml Urine Blood (Negative) U Epithel Cells (Auto) (0-5) /lpf Diagnostic Findings Head CT 06/05/22 11:37 CT OF THE HEAD WITHOUT CONTRAST CLINICAL HISTORY: Headache. COMPARISON STUDY: No previous studies for comparison. CT DOSE: 1021.09 mGy.cm TECHNIQUE: Helical axial images of the head were obtained without IV contrast. Automated exposure control was utilized for the study. A dose lowering technique was utilized adhering to the principles of ALARA. FINDINGS: No acute intracranial hemorrhage, midline shift or mass effect is present. White 1matter hypodensity suggests small vessel disease. Bilateral basal ganglia calcification is noted. The ventricular system is unremarkable. The basal cisterns are patent. No extra-axial collections are present. There are no findings to suggest acute dural sinus thrombosis or acute territorial infarct. No significant calvarial abnormalities are present. Visualized portions of the sinuses and mastoid air cells are clear. IMPRESSION: No acute intracranial findings. ACT 112: Negative or not required by law. Electronically signed by: Erick Hale M.D. 06/05/2022 1:18 PM Abdomen/Pelvis CT 06/05/22 12:[address] WITHOUT CONTRAST HISTORY: Acute generalized abdominal pain with nausea, vomiting and fever abd pain n/v and fever TECHNIQUE: Multiaxial CT images of the abdomen and pelvis were performed without contrast. A dose lowering technique was utilized adhering to the principles of ALARA. COMPARISON STUDY: 06/23/2020 FINDINGS: Cardiomegaly with extensive coronary artery calcifications. Subsegmental bibasilar densities favoring atelectasis. No pneumatosis or pneumoperitoneum. The unenhanced spleen, pancreas and adrenal glands are within normal limits. Mildly contracted gallbladder. The liver is within normal limits. Mild nonspecific bilateral perinephric stranding. 4 mm hypodense focus of the interpolar left kidney on image 180 series 5 is too small to characterize however stable from prior suggestive of a probable proteinaceous or hemorrhagic cyst. Exophytic cyst of the inferior pole left kidney. Mild bilateral pel vocaliectasis. Indeterminate 1.67 m hypodense lesion of the superior pole right kidney with Hounsfield unit of 19. No renal or ureteral calculi. Unremarkable urinary bladder. Atherosclerosis of the aorta without aneurysm. No lymphadenopathy identified. Tiny hiatal hernia. No bowel obstruction or bowel wall thickening. Scattered small large bowel air-fluid levels. Normal appendix. No ascites or mesenteric inflammation. There is an ovoid hypodense structure noted within the region of the right T12-L1 neural foramen measuring 1.7 cm on image 146 series 5, similar to prior. 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 Demineralized appearance of the bones. Degenerative changes of the spine, pelvis and hips. IMPRESSION: 1. No bowel obstruction or bowel wall thickening. Normal appendix. 2. Mild bilateral pelvocaliectasis. 3. Mild nonspecific bilateral perinephric stranding with an indeterminate 1.6 cm lesion of the superior interpolar right kidney, new from the 2020 exam. This lesion could be further evaluated with ultrasound. 4. Small hiatal hernia. ACT 112: Negative or not required by law. The above report was generated using voice recognition software. It may contain grammatical, syntax or spelling errors. Electronically signed by: Fazal Gagnon M.D. 06/05/2022 1:31 PM Chest X-Ray 06/05/22 14:42 XR chest 1V portable CLINICAL HISTORY: infection symptoms ?[facility] COMPARISON STUDY: Chest CT and chest radiograph March 09, 2021. FINDINGS: There is mild elevation of the right hemidiaphragm. No pneumothorax or pleural effusion is present. Bibasilar opacities favor atelectasis. There is mild cardiomegaly without evidence for pulmonary edema. IMPRESSION: No acute cardiopulmonary findings. Bibasilar opacities which favor atelectasis. ACT 112: Negative or not required by law. Electronically signed by: Erick Hale M.D. 06/05/2022 3:22 PM Renal Ultrasound 06/05/22 15:37 ULTRASOUND KIDNEYS AND BLADDER CLINICAL HISTORY: Follow-up right renal lesion. COMPARISON STUDY: Abdominal CT dated 06/05/2022 TECHNIQUE: Real-time, grayscale, and color flow sonography of the kidneys and bladder is performed. Images are reviewed in the transverse and longitudinal planes. FINDINGS: Kidneys: The kidneys demonstrating mild cortical atrophy. Echotexture is normal. The right kidney measures 10.2 cm in length and the left kidney measures 9.4 cm in length. There is fullness of the renal collecting systems without hydronephrosis. No shadowing renal calculi are identified. A 1.7 cm cyst is noted in the interpolar right kidney. This corresponds to the lesion in question by CT. This may contain a tiny calcification. A 1.2 cm cyst is noted on the left. There is no sonographic evidence of contour deforming renal mass lesion. No perinephric fluid is identified. Bladder: The partially distended bladder is normal in appearance. Bilateral ureteral jets were seen. IMPRESSION: 1. The kidneys demonstrate mild cortical atrophy and are without hydronephrosis. 2. There are bilateral renal cysts. A 1.7 cm cyst in the interpolar right kidney corresponds to the lesion seen by CT. 3. The bladder is normal as imaged. ACT 112: Negative or not required by law. Electronically signed by: Tanner Corral M.D. 06/05/2022 7:15 PM PG Care Time/CCT Total # of Minutes Spent Total Time Spent with Patient: Total time spent is greater than 50% in coordination of care (as documented) at patient's floor/unit and/or counseling patient: Coding Level of Care Code 39978 SUB INP/OBS CARE 2/35MIN Diagnoses Acute confusion R41.0 Acute kidney injury superimposed on CKD N17.9; N18.9 Hyponatremia E87.1 Leukocytosis D72.829 HTN (hypertension) I10 Mixed hyperlipidemia E78.2 Renal cyst N28.1
--- NOTE | 2022-06-06 12:23 | Urology Progress Note ---
Date of Service June 06, 2022 Assessment & Plan (1) Renal cyst: Plan 87yo/F admitted with confusion and CINDY on CKD. Urology consulted for evaluation of a right renal lesion noted on CT imaging. Afebrile and hemodynamically stable. Labs show no leukocytosis and creatinine of 1.55. Urine and blood cultures are pending. She is on IV ceftriaxone. Voiding spontaneously, continue to monitor. It appears that the renal lesion noted on CT scan represents a cyst via ultrasound. We will arrange an outpatient follow-up with our service for further discussion and continued monitoring. Urology will sign off. Please contact us with any further questions, concerns, or changes in patient's status. Admission and Anticipated Discharge Date Admission Date: June 05, 2022 Supervising Physician Co-Signing Physician Notes I have discussed Ms. Espino's case with RAFAEL Son and agree with the above documentation. No plan for acute intervention while inpatient. Likely will just require surveillance at this point. We will have her follow-up as an outpatient to discuss further. Subjective Patient examined at bedside this AM. Awake, resting in bed on arrival. No acute distress. She denies any significant pain at present. Voiding without issue. Denies hematuria dysuria. Denies fevers or chills. Review of Systems Constitutional: as per Subjective / HPI Genitourinary: as per Subjective / HPI Physical Exam Constitutional: no acute distress Respiratory: no respiratory distress and no labored breathing Neurologic: awake Psychiatric: Orientation: alert and cooperative Results & Data ([facility]) Vital Signs (Past 12 Hours) Vital Signs Temp Pulse Resp BP Pulse Ox O2 Del Method 06/06/22 07:45 Room Air 06/06/22 07:52 36.8 C 78 16 130/65 97 Room Air PG Care Time/CCT Total # of Minutes Spent Total Time Spent with Patient: Total time spent is greater than 50% in coordination of care (as documented) at patient's floor/unit and/or counseling patient: Coding Level of Care Code 80534 SUB INP/OBS CARE 125MIN Diagnoses Renal cyst N28.1
[2022-06-06] MEDS ORDERED: cefTRIAXone SODIUM 2,000 MG in DEXTROSE 5% 50 ML IV SCH (14:00)
[2022-06-06] MEDS: ACETAMINOPHEN 325 MG TAB PO PRN (22:04)
[2022-06-07] MEDS: METOPROLOL TARTRATE 50 MG TAB PO SCH (08:32)
[2022-06-07] MEDS: DOCUSATE SODIUM 100 MG CAP PO SCH ×2 (08:32→21:09)
[2022-06-07 08:51] LABS: Hematocrit (blood only) 30.9 % (37.0-47.0); Hemoglobin 10.7 g/dl (12.0-16.0); Mean Corpuscular Hemoglobin 29.6 pg (25.0-34.0); Mean Corpuscular Hgb Conc 34.6 g/dL (32.0-36.0); Mean Corpuscular Volume 85.6 fL (80.0-100.0); Platelet Count 176 K/uL (130-400); RDW Coefficient of Variation 12.8 % (11.5-14.5); RDW Standard Deviation 40.2 fL (36.4-46.3); Red Blood Count 3.61 M/uL (4.20-5.40); White Blood Count 7.66 K/ul (4.8-10.8)
[2022-06-07 08:54] LABS: BUN Creatinine Ratio 12.7 (10-20); Calcium 8.6 mg/dl (8.5-10.1); Est GFR (Non-African American) 38.8 ml/min; Magnesium 2.1 mg/dl (1.7-2.4)
[2022-06-07] MEDS ORDERED: CEFDINIR 300 MG CAP PO STA (09:49)
[2022-06-07] MEDS: ACETAMINOPHEN 325 MG TAB PO PRN ×2 (10:54→18:20)
[2022-06-07] MEDS ORDERED: ONDANSETRON INJ 2 MG/ML 2 ML VIAL IV PRN (11:14)
--- NOTE | 2022-06-07 11:25 | Hospitalist Progress Note ---
Date of Service June 07, 2022 Assessment & Plan (1) Acute confusion: Plan: -The patient remains afebrile, hemodynamically stable, and stable on RA 94% -Acute confusion has resolved -CT of the head was negative and she is without focal neuro defects on exam -Confusion was likely due to dehydration and her CINDY -Her UA from [facility] is not overtly concerning for a UTI and repeat urine culture is pending. at this time. -She has completed 3 doses of bactrim outpatient and was on ceftriaxone 2mg IV daily -Blood cultures were obtained in the ED and no growth thus far -Fall precautions ordered -Continue to monitor AM labs -Antibiotics changed to Cefdinir 300mg one BID starting today -Possibly discharge home tomorrow and will need 7 more days of oral antibiotics (2) Acute kidney injury superimposed on CKD: Plan: -Cr today is 1.26, baseline is approximately 1.1 -Likely due to dehydration from her diarrhea and/or previous Bactrim use -stool studies negative -Continue IV fluids and avoid nephrotoxic agents -Monitor AM renal function and electrolytes (3) Hyponatremia: Plan: -Sodium improved and continues to be normal -Likely due to her acute dehydration -Monitor repeat sodium in the am (4) Leukocytosis: Plan: -Patient has a mild leukocytosis of 13 on admission, does not appear toxic at this time and WBC remains normal and patient remains afebrile -Could be reactive from being on the ground and her acute dehydration -Continue to follow the infectious workup and trend her WBC -Changed IV Ceftriaxone to oral Cefdinir 300mg BID today -Await final urine and blood cultures (5) HTN (hypertension): Plan: -Stable -Continue metoprolol and amlodipine (6) Mixed hyperlipidemia: Plan: -Hold statin for now with her elevated CK level (7) Renal cyst: Plan: Urology consulted and reviewed the CT and the Renal U/S the lesion was noted to be a cyst. Urology arranged for an outpatient follow up for further discussion and continued monitoring. Plan The patient was discussed with Dr. Simons Admission and Anticipated Discharge Date Admission Date: June 05, 2022 Subjective Patient is awake sitting up in bed. Her son is at her bedside. Patient states she is feeling some better from yesterday. Earlier today she was asking to be discharged home. Then she had an episode of chills and her son was worried she was septic and nursing checked her temperature and it was normal at 37 degree celsius. She then was asking to stay another day, because she was scared to go home and have to come back. She denies any chest pain, cough, SOB, dyspnea. She is still having loose stools but are much less and improved. She has no N/V or abdominal pain. Review of Systems Review of Systems: All ROS negative unless stated otherwise in the HPI Physical Exam Constitutional: WD/WN, vitals as above Neck: trachea midline, no thyromegaly Respiratory: normal respiratory effort, lungs clear to auscultation Cardiovascular: Rate/Rhythm: regular rate and regular rhythm Gastrointestinal (Abdomen): normal bowel sounds, soft, nontender, no hepatosplenomegaly Neurologic: PERRL, EOMI, accommodation nl, no face palsy, no dysarthria Psychiatric: A+Ox3, euthymic affect Results & Data Results & Data ([facility]) Vital Signs (Past 12 Hours) Vital Signs Temp Pulse Resp BP Pulse Ox O2 Del Method 06/07/22 10:49 36.9 C 06/07/22 07:40 Room Air 06/07/22 07:12 36.8 C 84 16 153/64 H 95 Room Air Laboratory Results Abnormal lab results 06/07/22 06/07/22 06/07/22 Range/Units 08:07 08:07 08:07 RBC 3.61 L (4.20-5.40) M/uL Hgb 10.7 L (12.0-16.0) g/dl Hct 30.9 L (37.0-47.0) % MPV 9.0 L (9.4-12.4) fL Chloride 109 H (98-107) mmol/L Creatinine 1.26 H (0.6-1.2) mg/dl C-Reactive Protein (0-0.5) mg/dl Procalcitonin 32.62 H (0-0.5) ng/ml 06/07/22 Range/Units 08:07 RBC (4.20-5.40) M/uL Hgb (12.0-16.0) g/dl Hct (37.0-47.0) % MPV (9.4-12.4) fL Chloride (98-107) mmol/L Creatinine (0.6-1.2) mg/dl C-Reactive Protein 13.35 H (0-0.5) mg/dl Procalcitonin (0-0.5) ng/ml PG Care Time/CCT Total # of Minutes Spent Total Time Spent with Patient: Total time spent is greater than 50% in coordination of care (as documented) at patient's floor/unit and/or counseling patient: Coding Level of Care Code 50380 SUB INP/OBS CARE 2/35MIN Diagnoses Acute confusion R41.0 Acute kidney injury superimposed on CKD N17.9; N18.9 Hyponatremia E87.1 Leukocytosis D72.829 HTN (hypertension) I10 Mixed hyperlipidemia E78.2 Renal cyst N28.1
[2022-06-07] MEDS: CEFDINIR 300 MG CAP PO SCH (21:07)
[2022-06-08 07:34] LABS: Hematocrit (blood only) 32.6 % (37.0-47.0); Hemoglobin 11.2 g/dl (12.0-16.0); Mean Corpuscular Hemoglobin 29.8 pg (25.0-34.0); Mean Corpuscular Hgb Conc 34.4 g/dL (32.0-36.0); Mean Corpuscular Volume 86.7 fL (80.0-100.0); Mean Platelet Volume 8.7 fL (9.4-12.4); Platelet Count 171 K/uL (130-400); Red Blood Count 3.76 M/uL (4.20-5.40); White Blood Count 10.64 K/ul (4.8-10.8)
[2022-06-08 07:35] LABS: BUN Creatinine Ratio 9.9 (10-20); Calcium 8.5 mg/dl (8.5-10.1); Creatinine Clr Calc Pharmacy 24.8 ml/min; Est GFR (African American) 38.9 ml/min; Est GFR (Non-African American) 33.6 ml/min; Potassium 3.9 mmol/L (3.5-5.1)
[2022-06-08] MEDS: DOCUSATE SODIUM 100 MG CAP PO SCH (08:46)
[2022-06-08] MEDS: CEFDINIR 300 MG CAP PO SCH (08:46)
[2022-06-08] MEDS: METOPROLOL TARTRATE 50 MG TAB PO SCH (08:46)
--- NOTE | 2022-06-08 09:43 | Discharge Summary ---
Date of Service June 08, 2022 Admission HPI Per Admitting Provider Jose is an 87 year old female with a PMH significant for HTN, anxiety, previous DVT hyperlipidemia, stage 3 CKD, chronic back pain, and prediabetes who presented to the [facility] ED on 06/05/22 due to continued urinary symptoms and abdominal discomfort. In the ED the patient was found to be afebrile, hemodynamically stable, and stable on RA. Labs were remarkable for a WBC of 13 with left shift of 9.53, stable Hgb and platelets, cr of 1.97 (baseline appears to be around 1.1), sodium of 132, BUN of 32, otherwise stable electrolytes, total CK of 505, LFTs WNL, UA today showing trace blood but otherwise negative. CT of the head was read as "No acute intracranial findings.". CT of the abdomen/pelvis without IV contrast was read as "1. No bowel obstruction or bowel wall thickening. Normal appendix. 2. Mild bilateral pelvocaliectasis. 3. Mild nonspecific bilateral perinephric stranding with an indeterminate 1.6 cm lesion of the superior interpolar right kidney, new from the 2020 exam. This lesion could be further evaluated with ultrasound. 4. Small hiatal hernia.". Prior to admission the patient was given 1L NSS bolus and one dose of ceftriaxone. At the time of the exam the patient was resting comfortably in bed in no acute distress with her son sitting bedside, history was obtained from both. They state that the patient started to develop fevers, chills, malaise, multiple episodes of non-bloody diarrhea, dysuria, and increased urinary frequency over the past 5-7 days. Yesterday she went to [facility] for her symptoms and a UA was obtained. Review of the ua shows trace ketones, moderate blood, 100 protein, negative nitrites and trace leukocyte esterase. She was started on Bactrim yesterday and has had 3 total doses so far. Last night she states that she "slid" out of bed, she adamantly denies that she fell out of bed. She states that she was rolling in bed and did not realize where the edge of the bed was, she states that she slid slowly out of bed and does not exactly remember what part of her body she landed on. She denies hitting her hed or losing consciousness. Her son states that she was on the ground overnight until she was able to drag herself to her bathroom and lift herself back up. She current denies any pain from her fall. Her son states that she is still acting more confused than her baseline. He states that she thinks events that occurred yesterday happened 2-3 days ago. She does not feel as though her symptoms have changed since starting the Bactrim. She confirms that she is still making plenty of non-bloody urine at this time. When asked, she notes some mild lower abdominal discomfort that has not radiated. We discussed code status, she is a Full Code and her son would make decisions for her if she could not make them herself. Admission Exam Per Admitting Provider General:In no acute distress, stated age, non-toxic appearing HEENT:Normocephalic, atraumatic, no scleral icterus, pupils around round, symmetrical, and reactive to light, dry mucus membranes, trachea midline, no thyromegaly Chest/Pulm:No respiratory distress, symmetrical chest expansion, clear breath sounds throughout Cardiac:RRR, no murmurs noted Abdomen:Negative for ascites and bruising, normoactive bowel sounds, soft, non-tender to palpation throughout Musculoskeletal:Symmetrical and without signs of acute trauma, upper and lower extremities with full ROM, no atrophy, spasticity, or flaccidity Extremities:Radial, dorsalis pedis, and posterior tibial pulses are intact and symmetrical, no edema noted in the BL LE's Skin:Warm, dry, no rashes , lesions, or scars noted Neuro:Alert and oriented to person, place, month, year, and president, no focal defects, CN II-XII tested and intact, no tremors noted Psych:No acute distress, calm and cooperative during the exam Principal Diagnosis UTI Acute confusion 2/2 Dehydration and CINDY Discharge Exam Constitutional WD/WN, vitals as above Neck trachea midline, no thyromegaly Respiratory normal respiratory effort, lungs clear to auscultation Cardiovascular Rate/Rhythm: regular rate and regular rhythm Gastrointestinal (Abdomen) normal bowel sounds, soft, nontender, no hepatosplenomegaly Neurologic PERRL, EOMI, accommodation nl, no face palsy, no dysarthria Psychiatric A+Ox3, euthymic affect Discharge Data Allergies Allergy/AdvReac Type Severity Reaction Status Date / Time No Known Allergies Allergy Verified 06/05/22 15:10 Consultations 06/05/22 20:18 Consult Urology Routine Ordered Studies 06/05/22 11:37 CT head/brain wo con Stat IMPRESSION: No acute intracranial findings. 06/05/22 12:44 CT abd pelvis wo con Stat 1. No bowel obstruction or bowel wall thickening. Normal appendix. 2. Mild bilateral pelvocaliectasis. 3. Mild nonspecific bilateral perinephric stranding with an indeterminate 1.6 cm lesion of the superior interpolar right kidney, new from the 2020 exam. This lesion could be further evaluated with ultrasound. 4. Small hiatal hernia. 06/05/22 15:37 US Renal Bladder [US renal/blad retro comp] Urgent 1. The kidneys demonstrate mild cortical atrophy and are without hydronephrosis. 2. There are bilateral renal cysts. A 1.7 cm cyst in the interpolar right kidney corresponds to the lesion seen by CT. 3. The bladder is normal as imaged. Hospital Course (1) Acute confusion: -The patient remains afebrile, hemodynamically stable, and stable on RA 94% -Acute confusion has resolved -CT of the head was negative and she is without focal neuro defects on exam -Confusion was likely due to dehydration and her CINDY -Her UA from [facility] is not overtly concerning for a UTI and was unable to send for a culture due to a small sample size. Repeat C&S here (after 3 doses of bactrim less than 1,000 -She has completed 3 doses of bactrim outpatient and was on ceftriaxone 2mg IV daily then switched to oral Cefdinir yesterday -Blood cultures were obtained in the ED and no growth thus far -Fall precautions ordered (2) Acute kidney injury superimposed on CKD: -Cr improved yesterday to 1.26, baseline is approximately 1.1 -Likely due to dehydration from her diarrhea and/or previous Bactrim use -stool studies negative (3) Hyponatremia: -Sodium improved and continues to be normal -Likely due to her acute dehydration -Monitor repeat sodium in the am (4) Leukocytosis: -Patient has a mild leukocytosis of 13 on admission, does not appear toxic at this time and WBC remains normal and patient remains afebrile -Could be reactive from being on the ground and her acute dehydration -Continue to follow the infectious workup and trend her WBC -Changed IV Ceftriaxone to oral Cefdinir 300mg BID 06/07/22 -Final urine culture negative but was after having 3 doses Bactrim, blood cultures negative at 48 hours no growth (5) HTN (hypertension): -Stable -Continue metoprolol and amlodipine - BP today 122/77 (6) Mixed hyperlipidemia: -Held statin while admitted with her elevated CK level on admission (7) Renal cyst: Urology consulted and reviewed the CT and the Renal U/S the lesion was noted to be a cyst. Urology arranged for an outpatient follow up for further discussion and continued monitoring. Plan The patient was discussed with Dr. Simons Total Time Total Time Spent Total Time Spent (In Minutes): 40 Discharge Plan Discharge Items Patient Disposition: Home - Self-Care Reason For Visit: ABDOMINAL PAIN Discharge Diagnosis: UTI Acute confusion 2/2 dehydration and CINDY Condition on Discharge: Good Activity: Resume your previous activity Weightbearing: Full weightbearing Non-emergency contact: Primary Care Provider Call non-emergency contact if: you have any medication questions Follow-up/Referrals: Negar Hernandez MD [Primary Care Provider] - Diet: Heart Healthy Addtl Attending Provider Instructions: [facility] were [facility] with acute confusion and had been seen at an urgent care center and was diagnosed with a Urinary tract infection. You had 3 doses of Bactrim prior to coming into the hospital here. You urine culture here was negative and your blood culture is negative after 48 hours. You were also found to be dehydrated and you were started on IV fluids and your dehydration improved. A discussion was made with you and your son about increasing po fluid intake. You were initially started on IV antibiotics and then yesterday switched to oral antibiotics. You remained afebrile while admitted here and your vitals were stable. Also a CT scan incidentally found a kidney cyst and this was further evaluated by a U/S and also a urologist consult. You will need a follow up with urology as an outpatient. A Rx was sent to [facility] in [place] for Cefdinir 300mg start this rx tonight and then finishone 2 x daily until gone # 7 pills total will complete your full course. Also follow up with your family doctor. Pending Studies at Discharge: Yes Studies:: Final blood cultures Thus far negative and no growth at 48 hours Stand-Alone Forms: My [facility] Medications and DC Order Prescriptions: New cefdinir 300 mg Capsule 300 mg PO BID Qty: 7 0RF Rx Instructions: Start this medication tonight Continued simvastatin [Zocor] 20 mg tablet 20 mg PO DAILY Qty: 90 3RF Hold Instructions: while on paxlovid metoprolol tartrate 50 mg tablet 50 mg PO DAILY Qty: 90 3RF amlodipine 5 mg tablet 5 mg PO DAILY Qty: 90 3RF docusate sodium [Colace] 100 mg capsule 100 mg PO BID multivitamin with minerals Tablet 1 tab PO DAILY Discontinued sulfamethoxazole-trimethoprim 800-160 mg tablet 1 tab PO BID Rx Instructions: STARTED 06/04/22 FOR 7 DAYS Discharge Orders: Discharge Order (Routine); Ordered 06/08/22 Ordered By: Edilma Logan Admission Data Admit Date/Time: 06/07/22 11:19 Attending Provider: Abelardo Simons Admit Provider: Marcello Mendez Primary Care Provider: Negar Hernandez Other Providers: Raimundo Sidhu ; Albaro Tejeda ; Ponce Pickard ; Maggy Duran ; Sanjay Redding ; Ofelia Blackwell Melissa A. ; Kevin Ivey ; Zulma Royal ; Peyton Merchant ; Thor Torres ; Rasheed Carrington Coding Level of Care Code HOSP INP/OBS DISCH >30 MIN Diagnoses Acute confusion R41.0 Acute kidney injury superimposed on CKD N17.9; N18.9 Hyponatremia E87.1 Leukocytosis D72.829 HTN (hypertension) I10 Mixed hyperlipidemia E78.2 Renal cyst N28.1
[2022-06-09] MEDS ORDERED: CEFDINIR 300 MG CAP PO SCH (09:00)
== END 2022-06-08 12:16 | disposition home or self-care (01) | DRG 683 ==
LOC: 3W 10:44 → ED 10:44 → SUATTDRO 14:59 → 3W 18:12